=== PATIENT | male | born 1980 | race Caucasian/White ===

== ENCOUNTER 2016-06-29 12:24 | Inpatient (IN) | payer MEDICARE, OTHER ==
[2016-06-29 13:13] LABS: Blood, Urine Large (Negative); Clarity Turbid (Clear); Glucose, Urine (Dipstick) Negative (Negative); Leukocyte Small (Negative); Nitrite Positive (Negative); Protein, Urine (Dipstick) > or equal to 300 mg/dL (Neg-Trace)
[2016-06-29 13:23] LABS: Bilirubin Negative (Negative); Specific Gravity, Urine 1.024 (1.002-1.036)
[2016-06-29 13:24] LABS: ALT (SGPT) 12 U/L (0-55); AST (SGOT) 14 U/L (5-34); Albumin 3.5 g/dL (3.5-5.0); Alkaline Phosphatase 100 U/L (40-150); Anion Gap 14 mmol/L (10-20); BUN (Urea Nitrogen) 11 mg/dL (8.9-20.6); Bilirubin, Total 0.6 mg/dL (0.2-1.2); Calc. Creatinine Clearance 0 mL/min (70-130); Carbon Dioxide 21 mmol/L (22-29); Chloride 106 mmol/L (98-107); Estimated GFR-MDRD Greater than 90; Globulin 4.1 g/dL (2.4-3.5); Glucose 139 mg/dL (70-105); Potassium 3.6 mmol/L (3.5-5.1); Protein, Total 7.6 g/dL (6.0-8.3); Sodium 137 mmol/L (136-145)
[2016-06-29 13:26] LABS: Bacteria/HPF 4+ HPF (None Seen); Crystals/HPF None Seen HPF (Negative); Hyaline Casts/LPF NONE SEEN LPF (0-3 Hyaline); Other Casts/LPF None Seen LPF (0-3 Hyaline); Oval Fat Bodies/HPF None Seen HPF (None Seen); Renal Epithelial None Seen HPF (0-3); Sperm/HPF None Seen HPF (None Seen); Squamous Epithelial 0-3 HPF (0-3); Transitional Epithelial NONE SEEN HPF (0-3); Trichomonas/HPF None Seen HPF (None Seen); Yeast-All Forms None Seen HPF (None Seen)
[2016-06-29 13:30] LABS: Band 7 % (5-11); Eosinophils 3 % (0-10); Hemoglobin 15.7 g/dL (14.0-18.0); Lymphocytes 12 % (21-51); MDiff Complete? YES; Mean Corpuscular HGB CONC 35.4 g/dL (32.0-36.0); Mean Corpuscular Hemoglobin 32.7 pg (27.0-31.0); Mean Corpuscular Volume 92.4 fl (80.0-94.0); Mean Platelet Volume 8.5 fL (7.4-10.4); Monocytes 2 % (0-10); Neutrophil 76 % (42-75); Platelet Count 187 thou/uL (130-400); RBC Distribution Width 14.3 % (11.5-14.5); Red Blood Cell (RBC) Count 4.81 mill/uL (4.70-6.10); White Blood Cell (WBC) Count 10.8 thou/uL (4.8-10.8)
[2016-06-29] MEDS ORDERED: Acetaminophen 325 MG TAB ONE (13:46)
--- NOTE | 2016-06-29 15:28 | RAD ---
PORTABLE CHEST: Date: 06/29/16 An AP portable film at 1240 is compared with an 10/21/13 study. FINDINGS: The patient is turned to the left, which makes seeing the left lung base a little more difficult. No gross infiltrate or effusion was seen. I believe the slight haziness seen near the cardiac apex is more due to the patient being turned than infiltrate here. Prominent scoliosis is present as usual. There is no vascular congestion or firm sign of pneumonia. IMPRESSION: No acute findings. POS: HOME
[2016-06-29] MEDS ORDERED: Guaifenesin DM 100-10/5 ML UDCUP PO PRN (15:37)
[2016-06-29] MEDS ORDERED: Acetaminophen 325 MG TAB PO PRN ×2 (15:37→16:54)
[2016-06-29] MEDS ORDERED: Milk Of Magnesia 30 ML UDCUP PO PRN (15:37)
[2016-06-29] MEDS ORDERED: Zolpidem Tartrate 5 MG TAB PO PRN (15:37)
[2016-06-29] MEDS ORDERED: Ondansetron ODT 4 MG TAB PO PRN ×2 (15:37→16:54)
[2016-06-29] MEDS ORDERED: HYDROcodone/Acetaminophen 5/325 mg Tablet PO PRN ×2 (15:37)
[2016-06-29] MEDS ORDERED: Ondansetron HCl/PF 4 MG/2 ML Vial SLOW IVP PRN (16:54)
[2016-06-29] MEDS ORDERED: Albuterol Sulfate 2.5 mg/3 ml Neb NEB PRN (16:54)
[2016-06-29] MEDS: Dextrose 5 %-0.45 % NaCl 1,000 ML IV SCH ×2 (17:00→23:39)
[2016-06-29 17:12] VITALS: BMI 15.5
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
[2016-06-29] MEDS ORDERED: Diabetic Tussin 200 MG/10 ML UDCUP PO PRN (19:56)
[2016-06-29] MEDS ORDERED: Artificial Tear Sol 15 ML BOT EA EYE PRN (19:56)
[2016-06-29] MEDS ORDERED: diphenhydrAMINE HCl 25 MG CAP PO PRN (19:56)
[2016-06-29] MEDS: Docusate 100 MG CAP PO SCH (20:38)
[2016-06-29] MEDS ORDERED: CALCIUM HMB PO SCH (21:00)
[2016-06-29] MEDS ORDERED: ARGININE PO SCH (21:00)
[2016-06-29] MEDS ORDERED: GLUTAMINE PO SCH (21:00)
[2016-06-29] MEDS: Oxybutynin Chloride 5 MG TAB PO SCH (21:30)
[2016-06-29] MEDS: Baclofen 10 MG TAB PO SCH (21:30)
[2016-06-29] MEDS: Pregabalin 75 MG CAP PO SCH (21:33)
[2016-06-30 05:20] LABS: Anion Gap 10 mmol/L (10-20); BUN (Urea Nitrogen) 6 mg/dL (8.9-20.6); Calc. Creatinine Clearance 122 mL/min (70-130); Calcium 8.2 mg/dL (7.8-10.44); Carbon Dioxide 23 mmol/L (22-29); Chloride 109 mmol/L (98-107); Estimated GFR-MDRD Greater than 90; Glucose 137 mg/dL (70-105); Potassium 3.2 mmol/L (3.5-5.1); Sodium 139 mmol/L (136-145)
[2016-06-30 05:49] LABS: #Lymphocytes 1.1 thou/uL (1.20-3.40); #Monocytes 0.4 thou/uL (0.11-0.59); #Neutrophils 3.9 thou/uL (1.40-6.50); %Basophils 0.5 % (0.0-1.0); %Eosinophils 0.8 % (0.0-10.0); %Lymphocytes 20.4 % (21.0-51.0); %Monocytes 7.4 % (0.0-10.0); Mean Corpuscular HGB CONC 34.1 g/dL (32.0-36.0); Mean Corpuscular Hemoglobin 31.4 pg (27.0-31.0); Mean Corpuscular Volume 92.1 fl (80.0-94.0); Mean Platelet Volume 7.8 fL (7.4-10.4); Platelet Count 164 thou/uL (130-400); RBC Distribution Width 13.7 % (11.5-14.5); Red Blood Cell (RBC) Count 3.83 mill/uL (4.70-6.10); White Blood Cell (WBC) Count 5.4 thou/uL (4.8-10.8)
[2016-06-30] MEDS: Dextrose 5 %-0.45 % NaCl 1,000 ML IV SCH ×2 (06:17→12:15)
[2016-06-30] MEDS ORDERED: Potassium Chloride 20 MEQ TAB PO SCH (09:00)
[2016-06-30] MEDS: Pregabalin 75 MG CAP PO SCH ×2 (09:04→20:53)
[2016-06-30] MEDS: Oxybutynin Chloride 5 MG TAB PO SCH ×2 (09:04→20:54)
[2016-06-30] MEDS: Docusate 100 MG CAP PO SCH ×2 (09:04→20:54)
[2016-06-30] MEDS: Baclofen 10 MG TAB PO SCH ×4 (09:05→20:54)
[2016-07-01 05:18] LABS: Anion Gap 13 mmol/L (10-20); BUN (Urea Nitrogen) 10 mg/dL (8.9-20.6); Calc. Creatinine Clearance 115 mL/min (70-130); Calcium 9.3 mg/dL (7.8-10.44); Carbon Dioxide 23 mmol/L (22-29); Chloride 107 mmol/L (98-107); Estimated GFR-MDRD Greater than 90; Glucose 92 mg/dL (70-105); Potassium 3.9 mmol/L (3.5-5.1); Sodium 139 mmol/L (136-145)
[2016-07-01] MEDS: Pregabalin 75 MG CAP PO SCH ×2 (08:45→21:27)
[2016-07-01] MEDS: Baclofen 10 MG TAB PO SCH ×4 (08:45→21:26)
[2016-07-01] MEDS: Oxybutynin Chloride 5 MG TAB PO SCH ×2 (08:46→21:26)
[2016-07-01] MEDS: Docusate 100 MG CAP PO SCH ×2 (08:46→21:26)
[2016-07-02] MEDS ORDERED: Doxycycline Hyclate 100 MG TAB PO SCH (09:00)
[2016-07-02] MEDS: Docusate 100 MG CAP PO SCH (09:07)
[2016-07-02] MEDS: Baclofen 10 MG TAB PO SCH ×3 (09:08→17:43)
[2016-07-02] MEDS: Oxybutynin Chloride 5 MG TAB PO SCH (09:08)
[2016-07-02] MEDS: Pregabalin 75 MG CAP PO SCH (09:08)
[2016-07-02 19:05] VITALS: BP 124/76; TEMP 98.4
[2016-07-02] MEDS ORDERED: guaiFENesin ER 600 MG TAB PO SCH (21:00)
--- NOTE | 2016-07-03 03:55 | DIS ---
DATE OF ADMISSION: 06/29/2016 DATE OF DISCHARGE: 07/02/2016 ADMISSION DIAGNOSES: Complicated urinary tract infection, bronchitis, sacral decubitus ulcers, incomplete quadriplegia DISCHARGE DIAGNOSES: Complicated urinary tract infection, bronchitis - resolved , sacral decubitus ulcers - chronic, incomplete quadriplegia PROCEDURES: A chest x-ray on 06/29/2016 that showed no acute findings. HOSPITAL COURSE: A 36-year-old male with incomplete quadriplegia with a history of sacral decubitus ulcers, neurogenic bladder with suprapubic catheter and colostomy, presented with upper respiratory infection symptoms. Subsequent evaluation revealed a UTI which was cultured. Sputum culture and a wound culture of the sacral decubitus ulcers were also obtained. The patient was admitted for IV antibiotics in light of the multiple issues at hand. Of note, he did not have leukocytosis and was afebrile upon admission. Also, of note, prior to admission he had completed an antibiotic course approximately 3-4 days prior, which had been prescribed by his wound care doctor, Dr. Barton. The patient was initiated on IV Levaquin and his labs were trended. He remained afebrile throughout his stay with no leukocytosis. His final culture regarding the urine displayed both MRSA and Enterococcus species which were shown to be sensitive to Macrobid. He will be discharged with a 1 week course of treatment on this medication accordingly. He had no further complications during his stay and is amenable to discharge at this time. DISPOSITION: The patient will return home where he lives with his sister and will be further followed by [facility]. He may follow up with Dr. Adams in the clinic next week. DISCHARGE MEDICATIONS: Include his usual medications of guaifenesin 200 mg p.o. q.4 hours p.r.n., Lyrica 75 mg p.o. b.i.d., Artificial Tears 1-2 drops in each eye as directed p.r.n., oxybutynin 5 mg p.o. b.i.d., and baclofen 10 mg p.o. q.i.d. One new medication will be Macrobid 100 mg p.o. b.i.d. x7 days. MTDD
--- NOTE | 2016-07-03 13:42 | PQF ---
JULISSA CARLIN KYLE MD, [id number] CRITICAL ACCESS [facility] [id number] CLINICAL DOCUMENTATION CLARIFICATION FORM: POST DISCHARGE DATE: 07/03/16 DC Diagnoses includes; Complicated Urinary Tract Infection The following CLINICAL INDICATORS - SIGNS / SYMPTOMS are present in the medical record: [ ] "chronic indwelling Suprapubic catheter reports changed out on approximately the of last month. Therefore, due for replacement at present." [ ] UA, 4+bacteria; final culture displayed bothe MRSA and Enterococcus species. RISKS: [ ] Neurogenic bladder with chronic indwelling Suprapubic catheter [ ] Poor healing factors (incomplete quadriplegia, history sacral decubitus ulcers, chronic with osteomyelitis) [ ] Recent use of antibiotics; "3-4 days ago, completed course for sacral decubitus ulcer infections and chronic wounds" TREATMENT: [ ]Antibiotics_IV Levaquin 750mg [ ]Suprapubic Catheter change Please anahi a response below if a more specific term indicating a diagnosis and/ or acuity level for this condition can be identified. Please exercise your independent, professional judgment in responding to the clarification form. Clinical indicators are provided at the top of this form for your review. For continuity of documentation, please document condition throughout progress notes and discharge summary. Thank you. [ ] Present on Admission (POA): [ ] Yes [ ] No [ ] Unable to determine [ ] UTI underlying etiology [ ] (Condition) not related to presence of device. [ ] Does not apply to this patient [ ] Unable to determine [ ] Other diagnosis: _ Physician/Provider Signature Date Time (This form is maintained as a part of the permanent medical record) 2014 [employer], [employer]. All Rights Reserved CAMMY [email or web address] MTDD
== END 2016-07-02 19:50 | disposition home health service (06) | DRG 698 ==
LOC: BURERS 12:24 → BURMED 14:10
PROVIDERS: ADMIT Family Medicine; ATTEND Family Medicine
DX: T83.510A Infection and inflammatory reaction due to cystostomy catheter, initial encounter (principal); G82.54 Quadriplegia, C5-C7 incomplete; L89.153 Pressure ulcer of sacral region, stage 3; N39.0 Urinary tract infection, site not specified; B95.2 Enterococcus as the cause of diseases classified elsewhere; B95.62 Methicillin resistant Staphylococcus aureus infection as the cause of diseases classified elsewhere; J40 Bronchitis, not specified as acute or chronic; V86.59XS Driver of other special all-terrain or other off-road motor vehicle injured in nontraffic accident, sequela; S12.490S Other displaced fracture of fifth cervical vertebra, sequela; Z93.3 Colostomy status; N31.9 Neuromuscular dysfunction of bladder, unspecified; Z86.718 Personal history of other venous thrombosis and embolism; Z88.1 Allergy status to other antibiotic agents; E87.6 Hypokalemia
CPT/HCPCS: 36415; 71010; 80048; 80053; 81003; 81015; 83605; 85025; 87040; 87070; 87077; 87086; 87186; 87205; 94640; 96365; 96366; A4216; G8990-GP-CH; G8991-GP-CH; J1956; J7620

== ENCOUNTER 2016-10-21 09:16 | Outpatient (CLI) | payer MEDICARE, OTHER ==
--- NOTE | 2016-10-21 22:46 | RAD ---
PELVIS 10/21/16 Comparison is made with a 12/26/15 study done at [facility]. As previously, there has been a prior resection of the left femoral head at the neck with abundant h ypertrophic changes in the trochanteric regions that remain. Any exchange operator time here is minimal. T here is some irregularity of the acetabulum on the left, but it is no different than before. Each is chial tuberosity is missing, apparently from the prior infections. Since the prior study, one no longer sees the right femoral head.\ZU\ \N\I presume it has been resec esteban. There is now superior displacement of the remaining femur that is pseudoarticulating with the s ite of the right iliac bone just below the anterior inferior iliac spine. The SI joints cannot be pr operly evaluated due to overlying gas and fecal material. IMPRESSION: 1. Chronic changes involving the ischial bones and prior resection of the left femoral head. Th los areas have changed minimally over time. 2. Right femoral head and neck are no longer present, compared to previous study. There is resu lting superior subluxation of the right femur. See above. POS: HOME
== END 2016-10-21 09:17 | disposition home or self-care (01) ==
LOC: BURRAD 09:16
PROVIDERS: ATTEND Family Medicine
DX: L89.314 Pressure ulcer of right buttock, stage 4 (principal); S73.001A Unspecified subluxation of right hip, initial encounter
CPT/HCPCS: 72170

== ENCOUNTER 2016-12-08 17:02 | Emergency (ER) | payer MEDICARE, MEDICAID ==
[2016-12-08 18:26] LABS: #Basophils 0.1 thou/uL (0.0-0.2); #Eosinphils 0.3 thou/uL (0.0-0.7); #Lymphocytes 2.9 thou/uL (1.20-3.40); #Monocytes 0.8 thou/uL (0.11-0.59); #Neutrophils 5.6 thou/uL (1.40-6.50); %Basophils 0.8 % (0.0-1.0); %Eosinophils 2.8 % (0.0-10.0); %Lymphocytes 30.1 % (21.0-51.0); %Monocytes 8.5 % (0.0-10.0); %Neutrophils 57.8 % (42.0-75.0); Hemoglobin 15.3 g/dL (14.0-18.0); Mean Corpuscular HGB CONC 33.7 g/dL (32.0-36.0); Mean Corpuscular Volume 89.1 fl (80.0-94.0); Mean Platelet Volume 7.8 fL (7.4-10.4); Platelet Count 253 thou/uL (130-400); RBC Distribution Width 12.3 % (11.5-14.5); Red Blood Cell (RBC) Count 5.11 mill/uL (4.70-6.10); White Blood Cell (WBC) Count 9.6 thou/uL (4.8-10.8)
[2016-12-08] MEDS ORDERED: diphenhydrAMINE HCl 50 MG/ML 1 ML VIAL ONE (18:27)
[2016-12-08 18:35] LABS: ALT (SGPT) 14 U/L (8-55); AST (SGOT) 16 U/L (5-34); Albumin 3.8 g/dL (3.5-5.0); Alkaline Phosphatase 148 U/L (40-150); Anion Gap 12 mmol/L (10-20); BUN (Urea Nitrogen) 13 mg/dL (8.9-20.6); Bilirubin, Total 0.4 mg/dL (0.2-1.2); Calc. Creatinine Clearance 0 mL/min (70-130); Calcium 9.5 mg/dL (7.8-10.44); Carbon Dioxide 25 mmol/L (22-29); Chloride 107 mmol/L (98-107); Estimated GFR-MDRD Greater than 90; Globulin 4.3 g/dL (2.4-3.5); Glucose 86 mg/dL (70-105); Potassium 3.9 mmol/L (3.5-5.1); Protein, Total 8.1 g/dL (6.0-8.3); Sodium 140 mmol/L (136-145)
[2016-12-08 18:41] LABS: Bilirubin Negative (Negative); Blood, Urine Moderate (Negative); Clarity Turbid (Clear); Glucose, Urine (Dipstick) Negative (Negative); Leukocyte Large (Negative); Nitrite Positive (Negative); Protein, Urine (Dipstick) > or equal to 300 mg/dL (Neg-Trace); Specific Gravity, Urine 1.015 (1.005-1.030)
[2016-12-08 18:42] LABS: pH, Urine Greater/Equal 9.0 (5.0-9.0)
[2016-12-08 18:45] LABS: RBC/HPF GREATER THAN 50-TNTC HPF (0-3); Squamous Epithelial 0-3 HPF (0-3)
[2016-12-08 18:46] LABS: Bacteria/HPF 4+ HPF (None Seen); Crystals/HPF 3+ TRIPLE PHOS HPF (Negative)
== END 2016-12-08 19:12 | disposition home or self-care (01) ==
LOC: BURERS 17:02
DX: M86.9 Osteomyelitis, unspecified (principal); N39.0 Urinary tract infection, site not specified; I10 Essential (primary) hypertension; Z79.891 Long term (current) use of opiate analgesic; Z79.899 Other long term (current) drug therapy
CPT/HCPCS: 80053; 81003; 81015; 85025; 85652; 87040; 87070; 87077; 87086; 87186; 87205; 96365; 96375; J1200; J3370

== ENCOUNTER 2016-12-10 14:40 | Inpatient (IN) | payer MEDICARE, MEDICAID ==
[2016-12-11 17:06] LABS: #Basophils 0.1 thou/uL (0.0-0.2); #Eosinphils 0.2 thou/uL (0.0-0.7); #Lymphocytes 1.7 thou/uL (1.20-3.40); #Monocytes 0.5 thou/uL (0.11-0.59); #Neutrophils 2.6 thou/uL (1.40-6.50); %Basophils 1.1 % (0.0-1.0); %Eosinophils 3.4 % (0.0-10.0); %Lymphocytes 34.2 % (21.0-51.0); %Monocytes 9.1 % (0.0-10.0); %Neutrophils 52.3 % (42.0-75.0); Hemoglobin 13.7 g/dL (14.0-18.0); Mean Corpuscular HGB CONC 33.8 g/dL (32.0-36.0); Mean Corpuscular Hemoglobin 29.8 pg (27.0-31.0); Mean Corpuscular Volume 88.4 fl (80.0-94.0); Mean Platelet Volume 7.8 fL (7.4-10.4); Platelet Count 160 thou/uL (130-400); RBC Distribution Width 11.9 % (11.5-14.5)
[2016-12-11 17:24] LABS: ALT (SGPT) 17 U/L (8-55); AST (SGOT) 25 U/L (5-34); Albumin 3.4 g/dL (3.5-5.0); Alkaline Phosphatase 136 U/L (40-150); Anion Gap 10 mmol/L (10-20); BUN (Urea Nitrogen) 11 mg/dL (8.9-20.6); Bilirubin, Total 0.3 mg/dL (0.2-1.2); Calc. Creatinine Clearance 103 mL/min (70-130); Calcium 8.9 mg/dL (7.8-10.44); Carbon Dioxide 28 mmol/L (22-29); Chloride 104 mmol/L (98-107); Estimated GFR-MDRD Greater than 90; Globulin 3.8 g/dL (2.4-3.5); Glucose 75 mg/dL (70-105); Potassium 4.1 mmol/L (3.5-5.1); Protein, Total 7.2 g/dL (6.0-8.3); Sodium 138 mmol/L (136-145)
[2016-12-11] MEDS: Baclofen 10 MG TAB PO SCH ×2 (17:53→20:57)
[2016-12-11] MEDS: Enoxaparin Sodium 30 MG/0.3 ML SYRINGE SC SCH (20:52)
[2016-12-11] MEDS: Pregabalin 75 MG CAP PO SCH (20:57)
[2016-12-11] MEDS ORDERED: GLUTAMINE PO SCH (21:00)
[2016-12-11] MEDS: Oxybutynin 5 MG TAB PO SCH (21:00)
[2016-12-11] MEDS ORDERED: ARGININE PO SCH (21:00)
[2016-12-11] MEDS ORDERED: CALCIUM HMB PO SCH (21:00)
[2016-12-11] MEDS ORDERED: [UNRECOGNIZED DRUG - OTHER] IV SCH (21:00)
[2016-12-11] MEDS ORDERED: VANCOMYCIN HCL IN DEXTROSE 5% IV SCH (21:00)
[2016-12-11] MEDS ORDERED: Meropenem 1 GM VIAL IVPB SCH (22:00)
[2016-12-11 22:09] LABS: CRP (Inflammatory) 0.69 mg/dL (= or < 0.5)
[2016-12-11] MEDS: Meropenem 1 GM in Sodium Chloride 0.9% 100 ML IVPB SCH (22:59)
[2016-12-12] MEDS: Vancomycin HCl 750 MG in Sodium Chloride 0.9% 250 ML 250 ML IVPB SCH ×2 (00:12→12:44)
[2016-12-12] MEDS: Vancomycin HCl 500 MG in Sodium Chloride 0.9% 100 ML IVPB SCH ×2 (02:23→14:48)
[2016-12-12] MEDS: HYDROcodone/Acetaminophen 7.5/325 mg Tablet PO PRN ×2 (05:28→23:11)
[2016-12-12] MEDS: Meropenem 1 GM in Sodium Chloride 0.9% 100 ML IVPB SCH ×3 (05:33→23:10)
[2016-12-12] MEDS: Pregabalin 75 MG CAP PO SCH ×2 (10:15→20:26)
[2016-12-12] MEDS: Oxybutynin 5 MG TAB PO SCH ×2 (10:15→20:26)
[2016-12-12] MEDS: Baclofen 10 MG TAB PO SCH ×4 (10:16→20:28)
[2016-12-12] MEDS ORDERED: Vancomycin HCl 750 MG VIAL ONE (13:59)
[2016-12-12] MEDS ORDERED: diphenhydrAMINE 25 MG CAP PO PRN (15:38)
[2016-12-12] MEDS ORDERED: Acetaminophen 500 MG TAB ONE (16:05)
[2016-12-12] MEDS ORDERED: Acetaminophen 500 MG TAB PO SCH (16:15)
[2016-12-12] MEDS: Enoxaparin Sodium 30 MG/0.3 ML SYRINGE SC SCH (20:25)
[2016-12-12] MEDS: Acetaminophen 500 MG TAB PO SCH (23:42)
[2016-12-12] MEDS: diphenhydrAMINE 25 MG CAP PO SCH (23:43)
[2016-12-13] MEDS: Vancomycin HCl 750 MG in Sodium Chloride 0.9% 250 ML 250 ML IVPB SCH ×2 (00:06→13:15)
[2016-12-13] MEDS: Vancomycin HCl 500 MG in Sodium Chloride 0.9% 100 ML IVPB SCH ×2 (02:26→15:24)
[2016-12-13] MEDS: Meropenem 1 GM in Sodium Chloride 0.9% 100 ML IVPB SCH ×3 (06:09→23:14)
[2016-12-13] MEDS: Pregabalin 75 MG CAP PO SCH ×2 (09:12→20:36)
[2016-12-13] MEDS: Oxybutynin 5 MG TAB PO SCH ×2 (09:12→20:36)
[2016-12-13] MEDS: Baclofen 10 MG TAB PO SCH ×4 (09:13→20:36)
[2016-12-13 12:21] LABS: Vancomycin, Trough 20.9 ug/mL
[2016-12-13] MEDS: Acetaminophen 500 MG TAB PO SCH ×2 (12:42→23:42)
[2016-12-13] MEDS: diphenhydrAMINE 25 MG CAP PO SCH ×2 (12:42→23:42)
[2016-12-13] MEDS: HYDROcodone/Acetaminophen 7.5/325 mg Tablet PO PRN ×2 (12:42→23:15)
[2016-12-13] MEDS: Ondansetron ODT 4 MG TAB PO PRN (18:44)
[2016-12-13] MEDS: Enoxaparin Sodium 30 MG/0.3 ML SYRINGE SC SCH (20:36)
[2016-12-14] MEDS: Vancomycin HCl 750 MG in Sodium Chloride 0.9% 250 ML 250 ML IVPB SCH ×2 (00:22→12:38)
[2016-12-14] MEDS: Vancomycin HCl 500 MG in Sodium Chloride 0.9% 100 ML IVPB SCH ×2 (02:36→14:44)
[2016-12-14] MEDS: Meropenem 1 GM in Sodium Chloride 0.9% 100 ML IVPB SCH ×3 (06:09→23:28)
[2016-12-14] MEDS: Pregabalin 75 MG CAP PO SCH ×2 (07:50→21:23)
[2016-12-14] MEDS: Baclofen 10 MG TAB PO SCH ×4 (07:51→21:25)
[2016-12-14] MEDS: HYDROcodone/Acetaminophen 7.5/325 mg Tablet PO PRN ×3 (07:52→23:32)
[2016-12-14] MEDS: Oxybutynin 5 MG TAB PO SCH ×2 (07:52→21:25)
[2016-12-14] MEDS: diphenhydrAMINE 25 MG CAP PO SCH ×2 (11:31→23:33)
[2016-12-14] MEDS: Acetaminophen 500 MG TAB PO SCH ×2 (11:31→23:33)
[2016-12-14 12:22] LABS: Vancomycin, Trough 20.3 ug/mL
[2016-12-14] MEDS: Ondansetron ODT 4 MG TAB PO PRN (15:59)
[2016-12-14] MEDS: Enoxaparin Sodium 30 MG/0.3 ML SYRINGE SC SCH (21:24)
[2016-12-15] MEDS: Vancomycin HCl 750 MG in Sodium Chloride 0.9% 250 ML 250 ML IVPB SCH ×2 (00:04→12:27)
[2016-12-15] MEDS: Vancomycin HCl 500 MG in Sodium Chloride 0.9% 100 ML IVPB SCH ×2 (02:00→14:28)
[2016-12-15 05:23] LABS: Hemoglobin 14.1 g/dL (14.0-18.0); Platelet Count 141 thou/uL (130-400)
[2016-12-15 05:42] LABS: Calc. Creatinine Clearance 107 mL/min (70-130); Estimated GFR-MDRD Greater than 90
[2016-12-15] MEDS: Meropenem 1 GM in Sodium Chloride 0.9% 100 ML IVPB SCH ×3 (06:19→22:57)
[2016-12-15] MEDS: HYDROcodone/Acetaminophen 7.5/325 mg Tablet PO PRN (08:13)
[2016-12-15] MEDS: Oxybutynin 5 MG TAB PO SCH ×2 (08:13→20:56)
[2016-12-15] MEDS: Pregabalin 75 MG CAP PO SCH ×2 (08:13→20:55)
[2016-12-15] MEDS: Baclofen 10 MG TAB PO SCH ×4 (08:14→20:57)
[2016-12-15] MEDS: diphenhydrAMINE 25 MG CAP PO SCH (11:50)
[2016-12-15] MEDS: Acetaminophen 500 MG TAB PO SCH (11:51)
[2016-12-15] MEDS: Ondansetron ODT 4 MG TAB PO PRN ×2 (14:27→20:54)
[2016-12-15] MEDS: Enoxaparin Sodium 30 MG/0.3 ML SYRINGE SC SCH (20:56)
[2016-12-16] MEDS: Acetaminophen 500 MG TAB PO SCH ×3 (00:02→23:44)
[2016-12-16] MEDS: diphenhydrAMINE 25 MG CAP PO SCH ×3 (00:03→23:44)
[2016-12-16] MEDS: Vancomycin HCl 750 MG in Sodium Chloride 0.9% 250 ML 250 ML IVPB SCH ×2 (00:44→12:20)
[2016-12-16] MEDS: Vancomycin HCl 500 MG in Sodium Chloride 0.9% 100 ML IVPB SCH ×2 (02:24→14:32)
[2016-12-16] MEDS: Meropenem 1 GM in Sodium Chloride 0.9% 100 ML IVPB SCH ×3 (06:11→23:42)
[2016-12-16] MEDS: Pregabalin 75 MG CAP PO SCH ×2 (08:32→20:53)
[2016-12-16] MEDS: Oxybutynin 5 MG TAB PO SCH ×2 (08:32→20:53)
[2016-12-16] MEDS: Baclofen 10 MG TAB PO SCH ×4 (08:32→20:53)
[2016-12-16] MEDS: HYDROcodone/Acetaminophen 7.5/325 mg Tablet PO PRN ×2 (08:33→22:30)
[2016-12-16] MEDS: Floranex Packet PO SCH (08:33)
[2016-12-16] MEDS: Ondansetron ODT 4 MG TAB PO PRN (15:17)
[2016-12-16] MEDS: Enoxaparin Sodium 30 MG/0.3 ML SYRINGE SC SCH (20:54)
[2016-12-17] MEDS: Vancomycin HCl 750 MG in Sodium Chloride 0.9% 250 ML 250 ML IVPB SCH ×2 (00:34→13:15)
[2016-12-17] MEDS: Vancomycin HCl 500 MG in Sodium Chloride 0.9% 100 ML IVPB SCH ×2 (00:40→13:15)
[2016-12-17 05:22] LABS: Hemoglobin 13.2 g/dL (14.0-18.0); Platelet Count 141 thou/uL (130-400)
[2016-12-17 05:31] LABS: Calc. Creatinine Clearance 109 mL/min (70-130); Estimated GFR-MDRD Greater than 90
[2016-12-17] MEDS: Meropenem 1 GM in Sodium Chloride 0.9% 100 ML IVPB SCH ×3 (06:36→22:00)
[2016-12-17] MEDS: Floranex Packet PO SCH (08:45)
[2016-12-17] MEDS: Pregabalin 75 MG CAP PO SCH ×2 (08:45→22:02)
[2016-12-17] MEDS: Oxybutynin 5 MG TAB PO SCH ×2 (08:46→22:00)
[2016-12-17] MEDS: Baclofen 10 MG TAB PO SCH ×4 (08:46→22:00)
[2016-12-17 12:20] LABS: Vancomycin, Trough 19.5 ug/mL
[2016-12-17] MEDS: Acetaminophen 500 MG TAB PO SCH ×2 (12:35→23:55)
[2016-12-17] MEDS: diphenhydrAMINE 25 MG CAP PO SCH ×2 (12:35→23:56)
[2016-12-17] MEDS: Ondansetron ODT 4 MG TAB PO PRN (19:00)
[2016-12-17] MEDS: Enoxaparin Sodium 30 MG/0.3 ML SYRINGE SC SCH (22:01)
[2016-12-17] MEDS: HYDROcodone/Acetaminophen 7.5/325 mg Tablet PO PRN (23:54)
[2016-12-18] MEDS: Vancomycin HCl 750 MG in Sodium Chloride 0.9% 250 ML 250 ML IVPB SCH ×2 (00:47→12:46)
[2016-12-18] MEDS: Vancomycin HCl 500 MG in Sodium Chloride 0.9% 100 ML IVPB SCH ×2 (02:53→14:32)
[2016-12-18] MEDS: Meropenem 1 GM in Sodium Chloride 0.9% 100 ML IVPB SCH ×3 (06:04→22:04)
[2016-12-18] MEDS: Pregabalin 75 MG CAP PO SCH ×2 (08:41→21:30)
[2016-12-18] MEDS: Oxybutynin 5 MG TAB PO SCH ×2 (08:42→21:30)
[2016-12-18] MEDS: Floranex Packet PO SCH (08:43)
[2016-12-18] MEDS: Baclofen 10 MG TAB PO SCH ×4 (08:53→21:30)
[2016-12-18] MEDS: Acetaminophen 500 MG TAB PO SCH ×2 (12:15→22:46)
[2016-12-18] MEDS: diphenhydrAMINE 25 MG CAP PO SCH ×2 (12:15→22:46)
[2016-12-18] MEDS ORDERED: Vancomycin HCl 500 MG VIAL ONE (12:36)
[2016-12-18] MEDS ORDERED: VANCOMYCIN IVPB PRN (19:46)
[2016-12-18] MEDS: Enoxaparin Sodium 30 MG/0.3 ML SYRINGE SC SCH (21:29)
[2016-12-18] MEDS: HYDROcodone/Acetaminophen 7.5/325 mg Tablet PO PRN (21:31)
[2016-12-19] MEDS: Vancomycin HCl 500 MG in Sodium Chloride 0.9% 100 ML IVPB SCH ×2 (00:13→13:20)
[2016-12-19] MEDS: Vancomycin HCl 750 MG in Sodium Chloride 0.9% 250 ML 250 ML IVPB SCH (01:02)
[2016-12-19] MEDS: Meropenem 1 GM in Sodium Chloride 0.9% 100 ML IVPB SCH ×3 (05:47→23:52)
[2016-12-19 06:33] LABS: Hemoglobin 13.6 g/dL (14.0-18.0); Platelet Count 144 thou/uL (130-400)
[2016-12-19 06:58] LABS: Calc. Creatinine Clearance 109 mL/min (70-130); Estimated GFR-MDRD Greater than 90
[2016-12-19] MEDS: Floranex Packet PO SCH (08:39)
[2016-12-19] MEDS: Pregabalin 75 MG CAP PO SCH ×2 (08:39→21:01)
[2016-12-19] MEDS: Oxybutynin 5 MG TAB PO SCH ×2 (08:39→21:04)
[2016-12-19] MEDS: Baclofen 10 MG TAB PO SCH ×4 (08:39→21:04)
[2016-12-19 12:19] LABS: Vancomycin, Trough 23.7 ug/mL
[2016-12-19] MEDS: Acetaminophen 500 MG TAB PO SCH ×2 (12:43→23:54)
[2016-12-19] MEDS: diphenhydrAMINE 25 MG CAP PO SCH ×2 (12:44→23:54)
[2016-12-19] MEDS: Vancomycin HCl 1 GM in Sodium Chloride 0.9% 250 ML 250 ML IVPB SCH (13:52)
[2016-12-19] MEDS: HYDROcodone/Acetaminophen 7.5/325 mg Tablet PO PRN (15:19)
[2016-12-19] MEDS ORDERED: Milk Of Magnesia 30 ML UDCUP PO PRN (17:13)
[2016-12-19] MEDS: Enoxaparin Sodium 30 MG/0.3 ML SYRINGE SC SCH (21:05)
[2016-12-20] MEDS: Vancomycin HCl 1 GM in Sodium Chloride 0.9% 250 ML 250 ML IVPB SCH ×2 (00:48→13:34)
[2016-12-20] MEDS: Meropenem 1 GM in Sodium Chloride 0.9% 100 ML IVPB SCH ×3 (06:03→22:44)
[2016-12-20] MEDS: Floranex Packet PO SCH (08:50)
[2016-12-20] MEDS: Pregabalin 75 MG CAP PO SCH ×2 (08:50→20:50)
[2016-12-20] MEDS: Baclofen 10 MG TAB PO SCH ×4 (08:50→20:49)
[2016-12-20] MEDS: Oxybutynin 5 MG TAB PO SCH ×2 (08:51→20:49)
[2016-12-20] MEDS: Acetaminophen 500 MG TAB PO SCH (12:01)
[2016-12-20] MEDS: diphenhydrAMINE 25 MG CAP PO SCH (12:02)
[2016-12-20] MEDS: Enoxaparin Sodium 30 MG/0.3 ML SYRINGE SC SCH (20:49)
[2016-12-21] MEDS ORDERED: Acetaminophen 500 MG TAB ONE (00:21)
[2016-12-21] MEDS: Acetaminophen 500 MG TAB PO SCH ×2 (00:25→12:36)
[2016-12-21] MEDS: diphenhydrAMINE 25 MG CAP PO SCH ×2 (00:25→12:36)
[2016-12-21] MEDS: Vancomycin HCl 1 GM in Sodium Chloride 0.9% 250 ML 250 ML IVPB SCH ×2 (00:55→12:52)
[2016-12-21 05:59] LABS: Hemoglobin 13.5 g/dL (14.0-18.0); Platelet Count 148 thou/uL (130-400)
[2016-12-21] MEDS: Meropenem 1 GM in Sodium Chloride 0.9% 100 ML IVPB SCH ×3 (06:01→23:15)
[2016-12-21 06:07] LABS: Calc. Creatinine Clearance 113 mL/min (70-130); Estimated GFR-MDRD Greater than 90
[2016-12-21] MEDS: HYDROcodone/Acetaminophen 7.5/325 mg Tablet PO PRN ×2 (08:41→21:38)
[2016-12-21] MEDS: Pregabalin 75 MG CAP PO SCH ×2 (08:43→21:32)
[2016-12-21] MEDS: Baclofen 10 MG TAB PO SCH ×5 (08:43→21:32)
[2016-12-21] MEDS: Oxybutynin 5 MG TAB PO SCH ×2 (08:45→21:32)
[2016-12-21] MEDS: Floranex Packet PO SCH (08:46)
[2016-12-21 12:22] LABS: Vancomycin, Trough 20.3 ug/mL
[2016-12-21] MEDS: Ondansetron ODT 4 MG TAB PO PRN (16:52)
[2016-12-21] MEDS: Enoxaparin Sodium 30 MG/0.3 ML SYRINGE SC SCH (21:33)
[2016-12-22] MEDS: diphenhydrAMINE 25 MG CAP PO SCH ×3 (00:22→23:07)
[2016-12-22] MEDS: Acetaminophen 500 MG TAB PO SCH ×3 (00:22→23:07)
[2016-12-22] MEDS: Vancomycin HCl 1 GM in Sodium Chloride 0.9% 250 ML 250 ML IVPB SCH ×2 (01:02→12:41)
[2016-12-22] MEDS: Meropenem 1 GM in Sodium Chloride 0.9% 100 ML IVPB SCH ×3 (06:07→23:01)
[2016-12-22] MEDS: Oxybutynin 5 MG TAB PO SCH ×2 (08:48→20:57)
[2016-12-22] MEDS: Floranex Packet PO SCH (08:49)
[2016-12-22] MEDS: Pregabalin 75 MG CAP PO SCH ×2 (08:49→20:57)
[2016-12-22] MEDS: Baclofen 10 MG TAB PO SCH ×4 (08:49→20:57)
[2016-12-22 11:00] VITALS: BMI 13.8
[2016-12-22] MEDS: HYDROcodone/Acetaminophen 7.5/325 mg Tablet PO PRN ×2 (14:58→21:00)
[2016-12-22] MEDS: Enoxaparin Sodium 30 MG/0.3 ML SYRINGE SC SCH (21:00)
[2016-12-23] MEDS: Vancomycin HCl 1 GM in Sodium Chloride 0.9% 250 ML 250 ML IVPB SCH ×2 (00:03→12:50)
[2016-12-23] MEDS: Meropenem 1 GM in Sodium Chloride 0.9% 100 ML IVPB SCH ×3 (06:04→22:38)
[2016-12-23 06:17] LABS: Platelet Count 148 thou/uL (130-400)
[2016-12-23 06:29] LABS: Calc. Creatinine Clearance 97 mL/min (70-130); Estimated GFR-MDRD Greater than 90
[2016-12-23] MEDS: Baclofen 10 MG TAB PO SCH ×4 (08:13→20:32)
[2016-12-23] MEDS: Floranex Packet PO SCH (08:13)
[2016-12-23] MEDS: Oxybutynin 5 MG TAB PO SCH ×2 (08:13→20:34)
[2016-12-23] MEDS: Pregabalin 75 MG CAP PO SCH ×2 (08:13→20:35)
[2016-12-23] MEDS: HYDROcodone/Acetaminophen 7.5/325 mg Tablet PO PRN ×2 (08:14→20:33)
[2016-12-23] MEDS: diphenhydrAMINE 25 MG CAP PO SCH (12:16)
[2016-12-23] MEDS: Acetaminophen 500 MG TAB PO SCH (12:17)
[2016-12-23 12:18] LABS: Vancomycin, Trough 17.3 ug/mL
[2016-12-23] MEDS: Ondansetron ODT 4 MG TAB PO PRN (13:38)
[2016-12-23] MEDS: Famotidine 20 MG TAB PO SCH (18:08)
[2016-12-23] MEDS: Enoxaparin Sodium 30 MG/0.3 ML SYRINGE SC SCH (20:31)
[2016-12-24] MEDS: diphenhydrAMINE 25 MG CAP PO SCH ×3 (00:29→23:42)
[2016-12-24] MEDS: Acetaminophen 500 MG TAB PO SCH ×3 (00:29→23:41)
[2016-12-24] MEDS: Vancomycin HCl 1 GM in Sodium Chloride 0.9% 250 ML 250 ML IVPB SCH ×2 (01:12→12:59)
[2016-12-24] MEDS: Meropenem 1 GM in Sodium Chloride 0.9% 100 ML IVPB SCH ×3 (06:16→23:37)
[2016-12-24] MEDS: Oxybutynin 5 MG TAB PO SCH ×2 (09:02→20:53)
[2016-12-24] MEDS: Baclofen 10 MG TAB PO SCH ×4 (09:02→20:53)
[2016-12-24] MEDS: Famotidine 20 MG TAB PO SCH ×2 (09:02→20:53)
[2016-12-24] MEDS: Pregabalin 75 MG CAP PO SCH ×2 (09:02→20:53)
[2016-12-24] MEDS: HYDROcodone/Acetaminophen 7.5/325 mg Tablet PO PRN ×2 (09:03→23:41)
[2016-12-24] MEDS: Floranex Packet PO SCH (09:03)
[2016-12-24] MEDS ORDERED: Dicyclomine 10 MG CAP PO PRN (11:11)
[2016-12-24] MEDS: Enoxaparin Sodium 30 MG/0.3 ML SYRINGE SC SCH (20:55)
[2016-12-25] MEDS: Vancomycin HCl 1 GM in Sodium Chloride 0.9% 250 ML 250 ML IVPB SCH ×2 (00:15→13:20)
[2016-12-25 06:00] LABS: Hemoglobin 13.2 g/dL (14.0-18.0); Platelet Count 136 thou/uL (130-400)
[2016-12-25 06:01] LABS: Calc. Creatinine Clearance 100 mL/min (70-130); Estimated GFR-MDRD Greater than 90
[2016-12-25] MEDS: Meropenem 1 GM in Sodium Chloride 0.9% 100 ML IVPB SCH ×3 (06:16→22:54)
[2016-12-25] MEDS: Pregabalin 75 MG CAP PO SCH ×2 (08:56→20:44)
[2016-12-25] MEDS: Ondansetron ODT 4 MG TAB PO PRN (08:56)
[2016-12-25] MEDS: Baclofen 10 MG TAB PO SCH ×4 (08:59→20:43)
[2016-12-25] MEDS: Floranex Packet PO SCH (08:59)
[2016-12-25] MEDS: Famotidine 20 MG TAB PO SCH ×2 (08:59→20:44)
[2016-12-25] MEDS: Oxybutynin 5 MG TAB PO SCH ×2 (08:59→20:44)
[2016-12-25] MEDS: Acetaminophen 500 MG TAB PO SCH ×2 (12:42→23:52)
[2016-12-25] MEDS: diphenhydrAMINE 25 MG CAP PO SCH ×2 (12:43→23:52)
[2016-12-25] MEDS: Enoxaparin Sodium 30 MG/0.3 ML SYRINGE SC SCH (20:44)
[2016-12-26] MEDS: Vancomycin HCl 1 GM in Sodium Chloride 0.9% 250 ML 250 ML IVPB SCH ×2 (00:58→12:41)
[2016-12-26] MEDS: Meropenem 1 GM in Sodium Chloride 0.9% 100 ML IVPB SCH ×2 (06:21→14:57)
[2016-12-26] MEDS: Pregabalin 75 MG CAP PO SCH ×2 (10:02→20:43)
[2016-12-26] MEDS: Famotidine 20 MG TAB PO SCH ×2 (10:02→20:42)
[2016-12-26] MEDS: Oxybutynin 5 MG TAB PO SCH ×2 (10:02→20:42)
[2016-12-26] MEDS: Baclofen 10 MG TAB PO SCH ×4 (10:03→20:42)
[2016-12-26] MEDS: Floranex Packet PO SCH (10:03)
[2016-12-26] MEDS: HYDROcodone/Acetaminophen 7.5/325 mg Tablet PO PRN ×2 (10:04→16:50)
[2016-12-26] MEDS: Acetaminophen 500 MG TAB PO SCH (11:58)
[2016-12-26] MEDS: diphenhydrAMINE 25 MG CAP PO SCH (12:00)
[2016-12-26 12:24] LABS: Vancomycin, Trough 17.7 ug/mL
[2016-12-26] MEDS: Enoxaparin Sodium 30 MG/0.3 ML SYRINGE SC SCH (20:39)
[2016-12-27] MEDS: Meropenem 1 GM in Sodium Chloride 0.9% 100 ML IVPB SCH ×4 (00:02→22:53)
[2016-12-27] MEDS: HYDROcodone/Acetaminophen 7.5/325 mg Tablet PO PRN ×2 (00:03→20:06)
[2016-12-27] MEDS: Acetaminophen 500 MG TAB PO SCH ×2 (00:03→12:48)
[2016-12-27] MEDS: diphenhydrAMINE 25 MG CAP PO SCH ×2 (00:03→12:49)
[2016-12-27] MEDS: Vancomycin HCl 1 GM in Sodium Chloride 0.9% 250 ML 250 ML IVPB SCH ×2 (01:02→13:18)
[2016-12-27 06:23] LABS: Hemoglobin 14.3 g/dL (14.0-18.0); Platelet Count 171 thou/uL (130-400)
[2016-12-27 06:35] LABS: Calc. Creatinine Clearance 100 mL/min (70-130); Estimated GFR-MDRD Greater than 90
[2016-12-27] MEDS: Famotidine 20 MG TAB PO SCH ×2 (08:56→21:25)
[2016-12-27] MEDS: Pregabalin 75 MG CAP PO SCH ×2 (08:56→21:25)
[2016-12-27] MEDS: Oxybutynin 5 MG TAB PO SCH ×2 (08:57→21:25)
[2016-12-27] MEDS: Baclofen 10 MG TAB PO SCH ×4 (08:57→21:25)
[2016-12-27] MEDS: Floranex Packet PO SCH (08:57)
[2016-12-27] MEDS: Enoxaparin Sodium 30 MG/0.3 ML SYRINGE SC SCH (21:26)
[2016-12-28] MEDS: diphenhydrAMINE 25 MG CAP PO SCH ×2 (00:12→12:30)
[2016-12-28] MEDS: Acetaminophen 500 MG TAB PO SCH ×2 (00:12→12:30)
[2016-12-28] MEDS: Vancomycin HCl 1 GM in Sodium Chloride 0.9% 250 ML 250 ML IVPB SCH ×2 (00:54→13:00)
[2016-12-28] MEDS: Meropenem 1 GM in Sodium Chloride 0.9% 100 ML IVPB SCH ×3 (06:03→22:50)
[2016-12-28] MEDS: Pregabalin 75 MG CAP PO SCH ×2 (08:42→21:02)
[2016-12-28] MEDS: Oxybutynin 5 MG TAB PO SCH ×2 (08:42→21:04)
[2016-12-28] MEDS: Famotidine 20 MG TAB PO SCH ×2 (08:42→21:02)
[2016-12-28] MEDS: Floranex Packet PO SCH (08:42)
[2016-12-28] MEDS: Baclofen 10 MG TAB PO SCH ×4 (08:42→21:03)
[2016-12-28] MEDS: HYDROcodone/Acetaminophen 7.5/325 mg Tablet PO PRN ×2 (08:44→21:03)
[2016-12-28] MEDS: Enoxaparin Sodium 30 MG/0.3 ML SYRINGE SC SCH (21:04)
[2016-12-29] MEDS ORDERED: Acetaminophen/Codeine 30-300mg Tablet ONE (00:15)
[2016-12-29] MEDS ORDERED: Acetaminophen 500 MG TAB ONE ×2 (00:16→00:17)
[2016-12-29] MEDS: Acetaminophen 500 MG TAB PO SCH ×2 (00:21→12:17)
[2016-12-29] MEDS: diphenhydrAMINE 25 MG CAP PO SCH ×2 (00:22→12:17)
[2016-12-29] MEDS: Vancomycin HCl 1 GM in Sodium Chloride 0.9% 250 ML 250 ML IVPB SCH ×2 (01:38→12:57)
[2016-12-29 06:03] LABS: Hemoglobin 14.7 g/dL (14.0-18.0); Platelet Count 172 thou/uL (130-400)
[2016-12-29 06:07] LABS: Calc. Creatinine Clearance 105 mL/min (70-130); Estimated GFR-MDRD Greater than 90
[2016-12-29] MEDS: Meropenem 1 GM in Sodium Chloride 0.9% 100 ML IVPB SCH ×3 (07:05→23:06)
[2016-12-29] MEDS: Floranex Packet PO SCH (08:46)
[2016-12-29] MEDS: Baclofen 10 MG TAB PO SCH ×4 (08:48→20:52)
[2016-12-29] MEDS: Famotidine 20 MG TAB PO SCH ×2 (08:49→20:53)
[2016-12-29] MEDS: Oxybutynin 5 MG TAB PO SCH ×2 (08:49→20:53)
[2016-12-29] MEDS: Pregabalin 75 MG CAP PO SCH ×2 (08:51→20:53)
[2016-12-29] MEDS: HYDROcodone/Acetaminophen 7.5/325 mg Tablet PO PRN (08:53)
[2016-12-29 12:26] LABS: Vancomycin, Trough 24.1 ug/mL
[2016-12-29 12:30] LABS: Bilirubin Negative (Negative); Blood, Urine Large (Negative); Clarity Cloudy (Clear); Glucose, Urine (Dipstick) Negative (Negative); Leukocyte Large (Negative); Nitrite Negative (Negative); Protein, Urine (Dipstick) 30 mg/dL (Neg-Trace); Specific Gravity, Urine 1.015 (1.005-1.030); Urobilinogen 0.2 mg/dL (0.2-1.0)
[2016-12-29 12:44] LABS: Bacteria/HPF 1+ HPF (None Seen); Crystals/HPF 2+ CA OXALATE HPF (Negative); Hyaline Casts/LPF NONE SEEN LPF (0-3 Hyaline); Other Casts/LPF None Seen LPF (0-3 Hyaline); Oval Fat Bodies/HPF None Seen HPF (None Seen); Renal Epithelial None Seen HPF (0-3); Sperm/HPF None Seen HPF (None Seen); Squamous Epithelial None Seen HPF (0-3); Transitional Epithelial NONE SEEN HPF (0-3); Trichomonas/HPF None Seen HPF (None Seen); Yeast-All Forms None Seen HPF (None Seen)
[2016-12-29] MEDS: Enoxaparin Sodium 30 MG/0.3 ML SYRINGE SC SCH (20:52)
[2016-12-30] MEDS: Acetaminophen 500 MG TAB PO SCH ×2 (01:03→12:02)
[2016-12-30] MEDS: diphenhydrAMINE 25 MG CAP PO SCH ×2 (01:04→12:03)
[2016-12-30] MEDS: Vancomycin HCl 750 MG in Sodium Chloride 0.9% 250 ML 250 ML IVPB SCH ×2 (01:29→13:11)
[2016-12-30] MEDS: Meropenem 1 GM in Sodium Chloride 0.9% 100 ML IVPB SCH ×3 (06:07→22:52)
[2016-12-30] MEDS: Floranex Packet PO SCH (09:06)
[2016-12-30] MEDS: Pregabalin 75 MG CAP PO SCH ×2 (09:06→20:30)
[2016-12-30] MEDS: Baclofen 10 MG TAB PO SCH ×4 (09:07→20:29)
[2016-12-30] MEDS: Famotidine 20 MG TAB PO SCH ×2 (09:07→20:25)
[2016-12-30] MEDS: Oxybutynin 5 MG TAB PO SCH ×2 (09:07→20:29)
[2016-12-30] MEDS: Enoxaparin Sodium 30 MG/0.3 ML SYRINGE SC SCH (20:29)
[2016-12-30] MEDS: HYDROcodone/Acetaminophen 7.5/325 mg Tablet PO PRN (22:52)
[2016-12-31] MEDS: Acetaminophen 500 MG TAB PO SCH ×2 (00:31→12:36)
[2016-12-31] MEDS: diphenhydrAMINE 25 MG CAP PO SCH ×2 (00:31→12:35)
[2016-12-31] MEDS: Vancomycin HCl 750 MG in Sodium Chloride 0.9% 250 ML 250 ML IVPB SCH ×2 (01:11→13:08)
[2016-12-31] MEDS: Meropenem 1 GM in Sodium Chloride 0.9% 100 ML IVPB SCH ×3 (06:03→22:47)
[2016-12-31 06:23] LABS: Calc. Creatinine Clearance 105 mL/min (70-130); Estimated GFR-MDRD Greater than 90
[2016-12-31 06:37] LABS: Hemoglobin 14.3 g/dL (14.0-18.0); Platelet Count 161 thou/uL (130-400)
[2016-12-31] MEDS: Famotidine 20 MG TAB PO SCH ×2 (08:50→20:47)
[2016-12-31] MEDS: Floranex Packet PO SCH (08:50)
[2016-12-31] MEDS: Baclofen 10 MG TAB PO SCH ×4 (08:50→20:48)
[2016-12-31] MEDS: Oxybutynin 5 MG TAB PO SCH ×2 (08:51→20:48)
[2016-12-31] MEDS: Pregabalin 75 MG CAP PO SCH ×2 (08:51→20:48)
[2016-12-31 13:48] LABS: Vancomycin, Trough 16.7 ug/mL
[2016-12-31] MEDS: Enoxaparin Sodium 30 MG/0.3 ML SYRINGE SC SCH (20:48)
[2016-12-31] MEDS: HYDROcodone/Acetaminophen 7.5/325 mg Tablet PO PRN (23:43)
[2017-01-01] MEDS: diphenhydrAMINE 25 MG CAP PO SCH ×2 (00:22→12:44)
[2017-01-01] MEDS: Acetaminophen 500 MG TAB PO SCH ×2 (00:22→12:44)
[2017-01-01] MEDS: Vancomycin HCl 750 MG in Sodium Chloride 0.9% 250 ML 250 ML IVPB SCH ×2 (01:02→13:01)
[2017-01-01] MEDS: Meropenem 1 GM in Sodium Chloride 0.9% 100 ML IVPB SCH ×3 (05:59→23:04)
[2017-01-01] MEDS: Famotidine 20 MG TAB PO SCH ×2 (09:14→20:04)
[2017-01-01] MEDS: Pregabalin 75 MG CAP PO SCH ×2 (09:14→20:05)
[2017-01-01] MEDS: Oxybutynin 5 MG TAB PO SCH ×2 (09:14→20:04)
[2017-01-01] MEDS: Floranex Packet PO SCH (09:14)
[2017-01-01] MEDS: Baclofen 10 MG TAB PO SCH ×4 (09:14→20:04)
[2017-01-01] MEDS: HYDROcodone/Acetaminophen 7.5/325 mg Tablet PO PRN ×2 (09:15→18:18)
[2017-01-01] MEDS: Enoxaparin Sodium 30 MG/0.3 ML SYRINGE SC SCH (20:05)
[2017-01-02] MEDS: Acetaminophen 500 MG TAB PO SCH ×2 (00:30→12:49)
[2017-01-02] MEDS: diphenhydrAMINE 25 MG CAP PO SCH ×2 (00:31→12:49)
[2017-01-02] MEDS: Vancomycin HCl 750 MG in Sodium Chloride 0.9% 250 ML 250 ML IVPB SCH ×2 (01:01→13:39)
[2017-01-02] MEDS: Meropenem 1 GM in Sodium Chloride 0.9% 100 ML IVPB SCH ×3 (06:01→23:03)
[2017-01-02 06:44] LABS: Platelet Count 138 thou/uL (130-400)
[2017-01-02 06:51] LABS: Calc. Creatinine Clearance 109 mL/min (70-130); Estimated GFR-MDRD Greater than 90
[2017-01-02] MEDS: Baclofen 10 MG TAB PO SCH ×4 (08:40→20:41)
[2017-01-02] MEDS: Pregabalin 75 MG CAP PO SCH ×2 (08:40→20:42)
[2017-01-02] MEDS: Famotidine 20 MG TAB PO SCH ×2 (08:40→20:49)
[2017-01-02] MEDS: Oxybutynin 5 MG TAB PO SCH ×2 (08:42→20:42)
[2017-01-02] MEDS: Floranex Packet PO SCH (08:42)
[2017-01-02] MEDS: Fluconazole 100 MG TAB PO SCH (09:08)
[2017-01-02 12:20] LABS: Vancomycin, Trough 15.7 ug/mL
[2017-01-02] MEDS: Enoxaparin Sodium 30 MG/0.3 ML SYRINGE SC SCH (20:41)
[2017-01-03] MEDS: diphenhydrAMINE 25 MG CAP PO SCH ×3 (00:42→23:29)
[2017-01-03] MEDS: Acetaminophen 500 MG TAB PO SCH ×3 (00:42→23:29)
[2017-01-03] MEDS: Vancomycin HCl 750 MG in Sodium Chloride 0.9% 250 ML 250 ML IVPB SCH ×2 (01:20→12:39)
[2017-01-03] MEDS: Meropenem 1 GM in Sodium Chloride 0.9% 100 ML IVPB SCH ×3 (05:58→23:24)
[2017-01-03] MEDS: HYDROcodone/Acetaminophen 7.5/325 mg Tablet PO PRN ×2 (07:34→21:09)
[2017-01-03] MEDS: Fluconazole 100 MG TAB PO SCH (09:18)
[2017-01-03] MEDS: Oxybutynin 5 MG TAB PO SCH ×2 (09:20→21:05)
[2017-01-03] MEDS: Baclofen 10 MG TAB PO SCH ×5 (09:20→21:06)
[2017-01-03] MEDS: Famotidine 20 MG TAB PO SCH ×2 (09:20→21:09)
[2017-01-03] MEDS: Floranex Packet PO SCH (09:21)
[2017-01-03] MEDS: Pregabalin 75 MG CAP PO SCH ×2 (09:21→21:06)
[2017-01-03] MEDS: Enoxaparin Sodium 30 MG/0.3 ML SYRINGE SC SCH (21:10)
[2017-01-04] MEDS: Vancomycin HCl 750 MG in Sodium Chloride 0.9% 250 ML 250 ML IVPB SCH ×2 (00:21→12:58)
[2017-01-04] MEDS: Meropenem 1 GM in Sodium Chloride 0.9% 100 ML IVPB SCH ×2 (06:11→16:59)
[2017-01-04 06:20] LABS: Hemoglobin 12.7 g/dL (14.0-18.0); Platelet Count 169 thou/uL (130-400)
[2017-01-04 06:31] LABS: Calc. Creatinine Clearance 100 mL/min (70-130); Estimated GFR-MDRD Greater than 90
[2017-01-04] MEDS: Fluconazole 100 MG TAB PO SCH (08:20)
[2017-01-04] MEDS: Oxybutynin 5 MG TAB PO SCH ×2 (08:21→20:59)
[2017-01-04] MEDS: Baclofen 10 MG TAB PO SCH ×4 (08:21→20:59)
[2017-01-04] MEDS: Pregabalin 75 MG CAP PO SCH ×2 (08:21→21:00)
[2017-01-04] MEDS: Floranex Packet PO SCH (08:23)
[2017-01-04] MEDS: HYDROcodone/Acetaminophen 7.5/325 mg Tablet PO PRN ×2 (09:18→21:01)
[2017-01-04] MEDS: Famotidine 20 MG TAB PO SCH ×2 (09:18→20:59)
[2017-01-04] MEDS: diphenhydrAMINE 25 MG CAP PO SCH (12:09)
[2017-01-04] MEDS: Acetaminophen 500 MG TAB PO SCH (12:09)
[2017-01-04] MEDS: Enoxaparin Sodium 30 MG/0.3 ML SYRINGE SC SCH (21:02)
[2017-01-05] MEDS: Meropenem 1 GM in Sodium Chloride 0.9% 100 ML IVPB SCH ×4 (00:03→23:00)
[2017-01-05] MEDS: diphenhydrAMINE 25 MG CAP PO SCH ×2 (00:04→12:46)
[2017-01-05] MEDS: Acetaminophen 500 MG TAB PO SCH ×2 (00:04→12:47)
[2017-01-05] MEDS: Vancomycin HCl 750 MG in Sodium Chloride 0.9% 250 ML 250 ML IVPB SCH (00:56)
[2017-01-05] MEDS: Floranex Packet PO SCH (08:02)
[2017-01-05] MEDS: Famotidine 20 MG TAB PO SCH ×2 (08:02→20:37)
[2017-01-05] MEDS: Baclofen 10 MG TAB PO SCH ×4 (08:02→20:37)
[2017-01-05] MEDS: Pregabalin 75 MG CAP PO SCH ×2 (08:03→20:38)
[2017-01-05] MEDS: Fluconazole 100 MG TAB PO SCH (08:03)
[2017-01-05] MEDS: Oxybutynin 5 MG TAB PO SCH ×2 (08:03→20:37)
[2017-01-05] MEDS: HYDROcodone/Acetaminophen 7.5/325 mg Tablet PO PRN (08:04)
[2017-01-05 12:26] LABS: Vancomycin, Trough 13.5 ug/mL
[2017-01-05] MEDS: Vancomycin HCl 1 GM in Sodium Chloride 0.9% 250 ML 250 ML IVPB SCH (13:30)
[2017-01-05] MEDS: Enoxaparin Sodium 30 MG/0.3 ML SYRINGE SC SCH (20:38)
[2017-01-06] MEDS: diphenhydrAMINE 25 MG CAP PO SCH ×2 (00:24→11:48)
[2017-01-06] MEDS: Acetaminophen 500 MG TAB PO SCH ×2 (00:24→11:47)
[2017-01-06] MEDS: Vancomycin HCl 1 GM in Sodium Chloride 0.9% 250 ML 250 ML IVPB SCH ×2 (01:09→12:22)
[2017-01-06] MEDS: Meropenem 1 GM in Sodium Chloride 0.9% 100 ML IVPB SCH ×2 (05:56→15:08)
[2017-01-06 06:21] LABS: Hemoglobin 13.9 g/dL (14.0-18.0); Platelet Count 170 thou/uL (130-400)
[2017-01-06 06:29] VITALS: BP 139/86; TEMP 97.8
[2017-01-06 06:59] LABS: Calc. Creatinine Clearance 88 mL/min (70-130); Estimated GFR-MDRD Greater than 90
[2017-01-06] MEDS: Fluconazole 100 MG TAB PO SCH (09:49)
[2017-01-06] MEDS: Pregabalin 75 MG CAP PO SCH (09:49)
[2017-01-06] MEDS: Oxybutynin 5 MG TAB PO SCH (09:49)
[2017-01-06] MEDS: Floranex Packet PO SCH (09:50)
[2017-01-06] MEDS: Baclofen 10 MG TAB PO SCH ×2 (09:50→12:23)
[2017-01-06] MEDS: Famotidine 20 MG TAB PO SCH (09:50)
[2017-01-06] MEDS: HYDROcodone/Acetaminophen 7.5/325 mg Tablet PO PRN (11:46)
== END 2017-01-06 16:00 | disposition home health service (06) | DRG 539 ==
LOC: BURMED 12-11 12:21 → UNDOADMIN 12-11 12:21 → BURMED 12-11 12:22
PROVIDERS: ADMIT Family Medicine; ATTEND Family Medicine
DX: M86.9 Osteomyelitis, unspecified (principal); G82.54 Quadriplegia, C5-C7 incomplete; E43 Unspecified severe protein-calorie malnutrition; L89.154 Pressure ulcer of sacral region, stage 4; N31.9 Neuromuscular dysfunction of bladder, unspecified; B37.49 Other urogenital candidiasis; Z68.1 Body mass index [BMI] 19.9 or less, adult; Z93.3 Colostomy status; K21.9 Gastro-esophageal reflux disease without esophagitis; K59.00 Constipation, unspecified; Z86.718 Personal history of other venous thrombosis and embolism; N32.89 Other specified disorders of bladder; L89.899 Pressure ulcer of other site, unspecified stage; Z88.1 Allergy status to other antibiotic agents
CPT/HCPCS: 36415; 80053; 80202; 81001; 82565; 85014; 85018; 85025; 85049; 86140; 86141; 87086; 97602; A4216; C1751; G8981-GP-CN; G8982-GP-CN; G8983-GP-CN; G8987-GO-CL; G8988-GO-CL; G8989-GO-CL; G8990-GP-CH; G8991-GP-CH; J1650; J2185; J3370; J7050; Q0162

== ENCOUNTER 2017-07-14 12:22 | Outpatient (CLI) | payer MEDICARE, MEDICAID ==
--- NOTE | 2017-07-14 16:18 | RAD ---
CHEST TWO VIEWS: 07/14/17 Upright AP and lateral views are provided in a wheelchair and are compared with a 06/29/16 study. Marked dextroscoliosis is seen as usual. The lungs are clear. There are no infiltrates or effusions. The heart size is normal. IMPRESSION: No acute thoracic findings. POS: HOME
[2017-07-14 18:36] LABS: ALT (SGPT) 12 U/L (8-55); AST (SGOT) 21 U/L (5-34); Albumin 3.9 g/dL (3.5-5.0); Alkaline Phosphatase 152 U/L (40-150); Anion Gap 15 mmol/L (10-20); BUN (Urea Nitrogen) 7 mg/dL (8.9-20.6); Bilirubin, Total 0.5 mg/dL (0.2-1.2); Calc. Creatinine Clearance 0 mL/min (70-130); Calcium 9.3 mg/dL (7.8-10.44); Carbon Dioxide 24 mmol/L (22-29); Chloride 106 mmol/L (98-107); Estimated GFR-MDRD Greater than 90; Globulin 3.6 g/dL (2.4-3.5); Glucose 109 mg/dL (70-105); Potassium 4.2 mmol/L (3.5-5.1); Protein, Total 7.5 g/dL (6.0-8.3); Sodium 141 mmol/L (136-145)
[2017-07-14 18:39] LABS: #Eosinphils 0.2 thou/uL (0.0-0.7); #Lymphocytes 1.9 thou/uL (1.20-3.40); #Monocytes 0.5 thou/uL (0.11-0.59); #Neutrophils 3.9 thou/uL (1.40-6.50); %Basophils 0.4 % (0.0-1.0); %Eosinophils 2.9 % (0.0-10.0); %Neutrophils 59.7 % (42.0-75.0); Mean Corpuscular Hemoglobin 31.3 pg (27.0-31.0); Mean Corpuscular Volume 92.1 fl (80.0-94.0); Mean Platelet Volume 8.8 fL (7.4-10.4); Platelet Count 224 thou/uL (130-400); RBC Distribution Width 13.3 % (11.5-14.5); Red Blood Cell (RBC) Count 4.78 mill/uL (4.70-6.10); White Blood Cell (WBC) Count 6.6 thou/uL (4.8-10.8)
== END 2017-07-14 12:23 | disposition home or self-care (01) ==
LOC: BUREKG 12:22
PROVIDERS: ATTEND Family Medicine
DX: Z01.818 Encounter for other preprocedural examination (principal); N21.0 Calculus in bladder
CPT/HCPCS: 36415; 71046; 80053; 85025

== ENCOUNTER 2017-07-28 16:31 | Outpatient (CLI) | payer MEDICARE, MEDICAID ==
--- NOTE | 2017-07-28 19:48 | RAD ---
PELVIS: 07/28/2017 COMPARISON: 10/21/2016 FINDINGS: Erosion of both femoral heads and dislocations and subluxations of each hip are present, as usual. T heir appearance has changed little over time. The area around the right acetabulum seems a little mo re lucent a little more irregular than it was last year. I cannot rule out bony infection here. Thi s would be better assessed by MRI. The inferior pubic rami/ischial tuberosities are not visible for true assessment. The upper part of the bony pelvis appears intact. IMPRESSION: Chronic changes with some increased lucency around the right acetabular region. I cannot exclude pro gression of infection here. MRI would be a better assessment of this. CODE T POS: HOME
== END 2017-07-28 16:32 | disposition home or self-care (01) ==
LOC: BURRAD 16:31
PROVIDERS: ATTEND Family Medicine
DX: L89.314 Pressure ulcer of right buttock, stage 4 (principal); L89.324 Pressure ulcer of left buttock, stage 4
CPT/HCPCS: 72170

== ENCOUNTER 2017-08-20 10:32 | Inpatient (IN) | payer MEDICARE, OTHER ==
[2017-08-20] MEDS ORDERED: Sulfameth/Trimethoprim DS 800-160mg TAB ONE (21:03)
[2017-08-20] MEDS: Oxybutynin 5 MG TAB PO SCH (22:14)
[2017-08-20] MEDS: Baclofen 10 MG TAB PO SCH (22:14)
[2017-08-20] MEDS: Sulfameth/Trimethoprim DS 800-160mg TAB PO SCH (22:14)
[2017-08-20] MEDS: Pregabalin 75 MG CAP PO SCH (22:15)
[2017-08-21] MEDS: Floranex Packet PO SCH (09:20)
[2017-08-21] MEDS: Baclofen 10 MG TAB PO SCH ×4 (09:21→21:39)
[2017-08-21] MEDS: Sulfameth/Trimethoprim DS 800-160mg TAB PO SCH ×2 (09:21→21:39)
[2017-08-21] MEDS: Multivit, Therapeutic 1 TAB PO SCH (09:21)
[2017-08-21] MEDS: Pregabalin 75 MG CAP PO SCH ×2 (09:21→21:39)
[2017-08-21] MEDS: Oxybutynin 5 MG TAB PO SCH ×2 (09:22→21:39)
[2017-08-22] MEDS: Pregabalin 75 MG CAP PO SCH ×2 (08:23→23:17)
[2017-08-22] MEDS: Oxybutynin 5 MG TAB PO SCH ×2 (08:23→23:16)
[2017-08-22] MEDS: Sulfameth/Trimethoprim DS 800-160mg TAB PO SCH ×2 (08:23→23:16)
[2017-08-22] MEDS: Baclofen 10 MG TAB PO SCH ×4 (08:23→23:17)
[2017-08-22] MEDS: Multivit, Therapeutic 1 TAB PO SCH (08:23)
[2017-08-22] MEDS: Floranex Packet PO SCH (08:23)
[2017-08-23] MEDS: Floranex Packet PO SCH (08:26)
[2017-08-23] MEDS: Baclofen 10 MG TAB PO SCH ×4 (08:26→21:32)
[2017-08-23] MEDS: Sulfameth/Trimethoprim DS 800-160mg TAB PO SCH ×2 (08:26→21:32)
[2017-08-23] MEDS: Pregabalin 75 MG CAP PO SCH ×2 (08:26→21:33)
[2017-08-23] MEDS: Oxybutynin 5 MG TAB PO SCH ×2 (08:26→21:33)
[2017-08-23] MEDS: Multivit, Therapeutic 1 TAB PO SCH (08:26)
[2017-08-24] MEDS: Floranex Packet PO SCH (08:27)
[2017-08-24] MEDS: Oxybutynin 5 MG TAB PO SCH ×2 (08:28→21:49)
[2017-08-24] MEDS: Sulfameth/Trimethoprim DS 800-160mg TAB PO SCH ×2 (08:28→21:49)
[2017-08-24] MEDS: Baclofen 10 MG TAB PO SCH ×4 (08:28→21:50)
[2017-08-24] MEDS: Pregabalin 75 MG CAP PO SCH ×2 (08:28→21:50)
[2017-08-24] MEDS: Multivit, Therapeutic 1 TAB PO SCH (08:28)
[2017-08-25] MEDS: Oxybutynin 5 MG TAB PO SCH ×2 (09:19→20:43)
[2017-08-25] MEDS: Sulfameth/Trimethoprim DS 800-160mg TAB PO SCH ×2 (09:20→20:43)
[2017-08-25] MEDS: Floranex Packet PO SCH (09:20)
[2017-08-25] MEDS: Baclofen 10 MG TAB PO SCH ×4 (09:20→20:43)
[2017-08-25] MEDS: Multivit, Therapeutic 1 TAB PO SCH (09:20)
[2017-08-25] MEDS: Pregabalin 75 MG CAP PO SCH ×2 (09:20→20:43)
[2017-08-26] MEDS: Sulfameth/Trimethoprim DS 800-160mg TAB PO SCH ×2 (09:18→21:11)
[2017-08-26] MEDS: Oxybutynin 5 MG TAB PO SCH ×2 (09:18→21:11)
[2017-08-26] MEDS: Multivit, Therapeutic 1 TAB PO SCH (09:18)
[2017-08-26] MEDS: Pregabalin 75 MG CAP PO SCH ×2 (09:18→21:11)
[2017-08-26] MEDS: Baclofen 10 MG TAB PO SCH ×4 (09:18→21:10)
[2017-08-26] MEDS: Floranex Packet PO SCH (09:19)
[2017-08-27] MEDS: Sulfameth/Trimethoprim DS 800-160mg TAB PO SCH ×2 (08:57→21:24)
[2017-08-27] MEDS: Floranex Packet PO SCH (08:57)
[2017-08-27] MEDS: Multivit, Therapeutic 1 TAB PO SCH (08:58)
[2017-08-27] MEDS: Pregabalin 75 MG CAP PO SCH ×2 (08:58→21:24)
[2017-08-27] MEDS: Baclofen 10 MG TAB PO SCH ×4 (08:59→21:24)
[2017-08-27] MEDS: Oxybutynin 5 MG TAB PO SCH ×2 (08:59→21:24)
[2017-08-28] MEDS: Multivit, Therapeutic 1 TAB PO SCH (08:29)
[2017-08-28] MEDS: Baclofen 10 MG TAB PO SCH ×4 (08:29→20:55)
[2017-08-28] MEDS: Pregabalin 75 MG CAP PO SCH ×2 (08:29→20:55)
[2017-08-28] MEDS: Oxybutynin 5 MG TAB PO SCH ×2 (08:29→20:55)
[2017-08-28] MEDS: Floranex Packet PO SCH (08:29)
[2017-08-28] MEDS: Sulfameth/Trimethoprim DS 800-160mg TAB PO SCH ×2 (08:29→20:55)
[2017-08-29] MEDS: Multivit, Therapeutic 1 TAB PO SCH (10:16)
[2017-08-29] MEDS: Pregabalin 75 MG CAP PO SCH ×2 (10:16→20:49)
[2017-08-29] MEDS: Oxybutynin 5 MG TAB PO SCH ×2 (10:18→20:48)
[2017-08-29] MEDS: Baclofen 10 MG TAB PO SCH ×4 (10:19→20:47)
[2017-08-29] MEDS: Sulfameth/Trimethoprim DS 800-160mg TAB PO SCH ×2 (10:19→20:47)
[2017-08-29] MEDS: Floranex Packet PO SCH (10:20)
[2017-08-30] MEDS: Multivit, Therapeutic 1 TAB PO SCH (09:44)
[2017-08-30] MEDS: Pregabalin 75 MG CAP PO SCH ×2 (09:44→21:14)
[2017-08-30] MEDS: Sulfameth/Trimethoprim DS 800-160mg TAB PO SCH ×2 (09:44→21:14)
[2017-08-30] MEDS: Oxybutynin 5 MG TAB PO SCH ×2 (09:45→21:14)
[2017-08-30] MEDS: Baclofen 10 MG TAB PO SCH ×4 (09:45→21:14)
[2017-08-30] MEDS: Floranex Packet PO SCH (09:45)
[2017-08-30 22:20] VITALS: BMI 14.6
[2017-08-31 05:52] LABS: #Basophils 0.1 thou/uL (0.0-0.2); #Eosinphils 0.5 thou/uL (0.0-0.7); #Lymphocytes 2.6 thou/uL (1.20-3.40); #Monocytes 0.7 thou/uL (0.11-0.59); #Neutrophils 5.4 thou/uL (1.40-6.50); %Basophils 0.9 % (0.0-1.0); %Eosinophils 5.3 % (0.0-10.0); %Lymphocytes 27.8 % (21.0-51.0); %Monocytes 7.6 % (0.0-10.0); %Neutrophils 58.4 % (42.0-75.0); Hemoglobin 13.6 g/dL (14.0-18.0); Mean Corpuscular HGB CONC 34.6 g/dL (32.0-36.0); Mean Corpuscular Hemoglobin 28.5 pg (27.0-31.0); Mean Corpuscular Volume 82.4 fL (78.0-98.0); Mean Platelet Volume 6.8 fL (7.4-10.4); Platelet Count 223 thou/uL (130-400); Red Blood Cell (RBC) Count 4.78 mill/uL (4.70-6.10); White Blood Cell (WBC) Count 9.2 thou/uL (4.8-10.8)
[2017-08-31 06:01] LABS: Anion Gap 11 mmol/L (10-20); BUN (Urea Nitrogen) 18 mg/dL (8.9-20.6); Calc. Creatinine Clearance 92 mL/min (70-130); Calcium 9.2 mg/dL (7.8-10.44); Carbon Dioxide 25 mmol/L (22-29); Chloride 105 mmol/L (98-107); Estimated GFR-MDRD Greater than 90; Glucose 97 mg/dL (70-105); Potassium 4.3 mmol/L (3.5-5.1); Sodium 137 mmol/L (136-145)
[2017-08-31] MEDS: Pregabalin 75 MG CAP PO SCH ×2 (10:19→21:50)
[2017-08-31] MEDS: Floranex Packet PO SCH (10:19)
[2017-08-31] MEDS: Multivit, Therapeutic 1 TAB PO SCH (10:20)
[2017-08-31] MEDS: Sulfameth/Trimethoprim DS 800-160mg TAB PO SCH ×2 (10:20→21:50)
[2017-08-31] MEDS: Oxybutynin 5 MG TAB PO SCH ×2 (10:21→21:49)
[2017-08-31] MEDS: Baclofen 10 MG TAB PO SCH ×4 (10:21→21:49)
[2017-08-31 12:28] LABS: CRP (Inflammatory) 0.89 mg/dL (= or < 0.5)
[2017-09-01 06:57] VITALS: BP 132/94; TEMP 98.2
[2017-09-01] MEDS: Baclofen 10 MG TAB PO SCH ×2 (09:17→12:24)
[2017-09-01] MEDS: Floranex Packet PO SCH (09:17)
[2017-09-01] MEDS: Pregabalin 75 MG CAP PO SCH (09:18)
[2017-09-01] MEDS: Sulfameth/Trimethoprim DS 800-160mg TAB PO SCH (09:18)
[2017-09-01] MEDS: Multivit, Therapeutic 1 TAB PO SCH (09:18)
[2017-09-01] MEDS: Oxybutynin 5 MG TAB PO SCH (09:18)
== END 2017-09-01 16:04 | disposition home health service (06) | DRG 592 ==
LOC: BURMED 14:45
PROVIDERS: ADMIT Family Medicine; ATTEND Family Medicine
DX: L97.129 Non-pressure chronic ulcer of left thigh with unspecified severity (principal); G82.54 Quadriplegia, C5-C7 incomplete; E43 Unspecified severe protein-calorie malnutrition; M86.652 Other chronic osteomyelitis, left thigh; K59.2 Neurogenic bowel, not elsewhere classified; M86.651 Other chronic osteomyelitis, right thigh; L97.119 Non-pressure chronic ulcer of right thigh with unspecified severity; N31.9 Neuromuscular dysfunction of bladder, unspecified; Z93.3 Colostomy status; Z86.718 Personal history of other venous thrombosis and embolism; Z86.711 Personal history of pulmonary embolism; I10 Essential (primary) hypertension; N21.0 Calculus in bladder; N20.0 Calculus of kidney
CPT/HCPCS: 36415; 80048; 85025; 86140; G8990-GP-CH; G8991-GP-CH

== ENCOUNTER 2017-11-03 13:55 | Emergency (ER) | payer MEDICARE, MEDICAID ==
[2017-11-03] MEDS ORDERED: Ondansetron HCl/PF 4 MG/2 ML Vial ONE (14:23)
[2017-11-03] MEDS ORDERED: Ampicillin/Sulbactam 1.5 GM VIAL ONE (15:22)
[2017-11-03] MEDS ORDERED: diphenhydrAMINE 50 MG/ML VIAL ONE (15:29)
[2017-11-03] MEDS ORDERED: Acetaminophen 500 MG TAB ONE (16:07)
== END 2017-11-03 16:12 | disposition home or self-care (01) ==
LOC: BURERS 13:55
DX: N39.0 Urinary tract infection, site not specified (principal); I10 Essential (primary) hypertension; Z79.899 Other long term (current) drug therapy
CPT/HCPCS: 87086; 87324; 87449; 96374; 96375; J0295; J1200; J2405

== ENCOUNTER 2017-12-22 14:51 | Emergency (ER) | payer MEDICARE, MEDICAID ==
[2017-12-22 15:46] LABS: Clarity Turbid (Clear); Leukocyte Small (Negative); Nitrite Positive (Negative); Specific Gravity, Urine 1.025 (1.005-1.030); pH, Urine 6.5 (5.0-9.0)
[2017-12-22 15:47] LABS: Bilirubin Negative (Negative); Blood, Urine Large (Negative); Glucose, Urine (Dipstick) Negative (Negative); Protein, Urine (Dipstick) > or equal to 300 mg/dL (Neg-Trace)
[2017-12-22 15:51] LABS: Bacteria/HPF 4+ HPF (None Seen); Sperm/HPF 4+ HPF (None Seen); Squamous Epithelial 0-3 HPF (0-3); Yeast-All Forms 1+ HPF (None Seen)
[2017-12-22 16:07] LABS: #Eosinphils 0.1 thou/uL (0.0-0.7); #Lymphocytes 1.4 thou/uL (1.20-3.40); #Neutrophils 7.9 thou/uL (1.40-6.50); %Basophils 0.2 % (0.0-1.0); %Lymphocytes 13.8 % (21.0-51.0); %Monocytes 9.2 % (0.0-10.0); %Neutrophils 75.9 % (42.0-75.0); Hemoglobin 13.7 g/dL (14.0-18.0); Mean Corpuscular HGB CONC 34.9 g/dL (32.0-36.0); Mean Platelet Volume 7.3 fL (7.4-10.4); Platelet Count 241 thou/uL (130-400); RBC Distribution Width 12.5 % (11.5-14.5); Red Blood Cell (RBC) Count 4.56 mill/uL (4.70-6.10); White Blood Cell (WBC) Count 10.4 thou/uL (4.8-10.8)
[2017-12-22 16:24] LABS: ALT (SGPT) 12 U/L (8-55); AST (SGOT) 16 U/L (5-34); Albumin 3.8 g/dL (3.5-5.0); Alkaline Phosphatase 109 U/L (40-150); Anion Gap 12 mmol/L (10-20); BUN (Urea Nitrogen) 8 mg/dL (8.9-20.6); Bilirubin, Total 0.4 mg/dL (0.2-1.2); Calc. Creatinine Clearance 0 mL/min (70-130); Calcium 9.8 mg/dL (7.8-10.44); Carbon Dioxide 27 mmol/L (22-29); Chloride 102 mmol/L (98-107); Estimated GFR-MDRD Greater than 90; Globulin 4.6 g/dL (2.4-3.5); Glucose 102 mg/dL (70-105); Protein, Total 8.4 g/dL (6.0-8.3); Sodium 137 mmol/L (136-145)
[2017-12-22] MEDS ORDERED: Amoxicillin/Potassium Clav 875 MG TAB ONE (16:41)
== END 2017-12-22 16:57 | disposition home or self-care (01) ==
LOC: BURERS 14:51
DX: N39.0 Urinary tract infection, site not specified (principal); I10 Essential (primary) hypertension; Z79.899 Other long term (current) drug therapy
CPT/HCPCS: 36415; 80053; 81003; 81015; 85025; 87077; 87086; 87186; 99284

== ENCOUNTER 2018-08-12 11:59 | Outpatient (CLI) | payer MEDICARE, MEDICAID ==
--- NOTE | 2018-08-12 18:46 | RAD ---
ABDOMEN: 08/12/18 Comparison is made with the 07/28/17 study. There is a large amount of gas and fecal material in the c olon. As such, this would easily obscure some calculi. No specific calcifications are seen that I cou ld guarantee are calculi. A small rounded calcification in the pelvis on the right seems more likely to be a phlebolith. A suprapubic catheter is seen in place. The abdominal gas pattern is nonspecific with gas in the large and small bowel. What I presume to be a vena cava filter is seen in the abdomen but is to the left of midline. It is not different in appearance or location than the 2018 study. Ch ronic hip dislocations and erosion of the femoral heads is noted. IMPRESSION: Nonspecific abdominal findings. This study is not able to resolve any ureteral or renal calculi due t o the large amount of gas and fecal material. POS: HOME
== END 2018-08-12 12:00 | disposition home or self-care (01) ==
LOC: BURRAD 11:59
PROVIDERS: ATTEND Urology
DX: N20.0 Calculus of kidney (principal)
CPT/HCPCS: 74018

== ENCOUNTER 2020-09-09 23:17 | Emergency (ER) | payer MEDICARE, OTHER ==
[2020-09-10 00:21] LABS: #Basophils 0.1 thou/uL (0.0-0.2); #Lymphocytes 1.3 thou/uL (1.20-3.40); #Monocytes 0.7 thou/uL (0.11-0.59); #Neutrophils 8.8 thou/uL (1.40-6.50); %Basophils 0.7 % (0.0-1.0); %Eosinophils 0.2 % (0.0-10.0); %Lymphocytes 11.6 % (21.0-51.0); %Monocytes 6.1 % (0.0-10.0); %Neutrophils 81.4 % (42.0-75.0); Hemoglobin 12.6 g/dL (14.0-18.0); Mean Corpuscular HGB CONC 33.4 g/dL (32.0-36.0); Mean Corpuscular Volume 92.8 fL (78.0-98.0); Mean Platelet Volume 6.4 fL (7.4-10.4); Platelet Count 233 thou/uL (130-400); RBC Distribution Width 12.7 % (11.5-14.5); Red Blood Cell (RBC) Count 4.06 mill/uL (4.70-6.10); White Blood Cell (WBC) Count 10.9 thou/uL (4.8-10.8)
[2020-09-10 00:34] LABS: Acetaminophen Less than 6.0 mcg/mL (10.0-30.0); Alcohol Less than 10 mg/dL (Less than 10); Salicylate Less than 8.0 mg/dL (15.0-30.0)
[2020-09-10] MEDS ORDERED: Mag-Al Plus 1200 MG/1200 MG/120 MG/30 ML UDCUP ONE (00:34)
[2020-09-10] MEDS ORDERED: Lidocaine Viscous Sol 2% 15 ml UD Cup ONE (00:34)
[2020-09-10 00:36] LABS: ALT (SGPT) 13 U/L (8-55); AST (SGOT) 16 U/L (5-34); Albumin 2.8 g/dL (3.5-5.0); Alkaline Phosphatase 92 U/L (40-110); Anion Gap 14 mmol/L (10-20); BUN (Urea Nitrogen) 21 mg/dL (8.9-20.6); Bilirubin, Total 0.2 mg/dL (0.2-1.2); Calc. Creatinine Clearance 0 mL/min (70-130); Calcium 8.6 mg/dL (7.8-10.44); Carbon Dioxide 24 mmol/L (22-29); Chloride 102 mmol/L (98-107); Globulin 3.9 g/dL (2.4-3.5); Glucose 121 mg/dL (70-105); Protein, Total 6.7 g/dL (6.0-8.3); Sodium 135 mmol/L (136-145)
[2020-09-10 01:03] LABS: Amphetamine Not Detected (NotDetected); Barbiturates Screen Not Detected (NotDetected); Benzodiazepine Screen Not Detected (NotDetected); Cocaine Metabolite Screen Not Detected (NotDetected); Medtox Control Line Valid? VALID (VALID); Methadone Not Detected (NotDetected); Methamphetamine Not Detected (NotDetected); Opiate Screen Not Detected (NotDetected); Oxycodone Screen Not Detected (NotDetected); Phencyclidine (PCP) Not Detected (NotDetected); THC/Cannabinoid Screen Detected (NotDetected); Tricyclic Screen Not Detected (NotDetected)
== END 2020-09-10 01:53 | disposition home or self-care (01) ==
LOC: BURERS 23:17
DX: E86.0 Dehydration (principal); I10 Essential (primary) hypertension; Z79.899 Other long term (current) drug therapy
CPT/HCPCS: 70450; 71045; 80053; 80306; 80307; 83605; 84484; 85025; 93005

== ENCOUNTER 2020-09-18 14:51 | Observation (INO) | payer MEDICARE, MEDICAID ==
[2020-09-18 15:48] LABS: Hemoglobin 13.8 g/dL (14.0-18.0); Mean Corpuscular HGB CONC 33.2 g/dL (32.0-36.0); Mean Corpuscular Hemoglobin 30.9 pg (27.0-31.0); Mean Corpuscular Volume 93.1 fL (78.0-98.0); Mean Platelet Volume 7.3 fL (7.4-10.4); Platelet Count 190 thou/uL (130-400); RBC Distribution Width 14.2 % (11.5-14.5); Red Blood Cell (RBC) Count 4.45 mill/uL (4.70-6.10); White Blood Cell (WBC) Count 7.4 thou/uL (4.8-10.8)
[2020-09-18 16:04] LABS: ALT (SGPT) 7 U/L (8-55); AST (SGOT) 12 U/L (5-34); Albumin 3.1 g/dL (3.5-5.0); Alkaline Phosphatase 118 U/L (40-110); Anion Gap 16 mmol/L (10-20); BUN (Urea Nitrogen) 19 mg/dL (8.9-20.6); Bilirubin, Total 0.2 mg/dL (0.2-1.2); CK (CPK) 26 U/L (30-200); Calc. Creatinine Clearance 0 mL/min (70-130); Calcium 9.6 mg/dL (7.8-10.44); Carbon Dioxide 25 mmol/L (22-29); Chloride 100 mmol/L (98-107); Globulin 4.9 g/dL (2.4-3.5); Glucose 87 mg/dL (70-105); Sodium 136 mmol/L (136-145)
[2020-09-18 16:29] LABS: Bilirubin Negative (Negative); Blood, Urine Moderate (Negative); Clarity Clear (Clear); Glucose, Urine (Dipstick) Negative (Negative); Ketone, Urine Negative (Negative); Leukocyte Moderate (Negative); Nitrite Negative (Negative); Protein, Urine (Dipstick) Negative (Neg-Trace); Specific Gravity, Urine 1.015 (1.005-1.030); Urobilinogen 0.2 mg/dL (Less than 2); pH, Urine 6.5 (5.0-9.0)
[2020-09-18 16:40] LABS: Amphetamine Not Detected (NotDetected); Barbiturates Screen Not Detected (NotDetected); Benzodiazepine Screen Not Detected (NotDetected); Cocaine Metabolite Screen Not Detected (NotDetected); Medtox Control Line Valid? VALID (VALID); Methadone Not Detected (NotDetected); Methamphetamine Not Detected (NotDetected); Opiate Screen Detected (NotDetected); Oxycodone Screen Not Detected (NotDetected); Phencyclidine (PCP) Not Detected (NotDetected); THC/Cannabinoid Screen Detected (NotDetected); Tricyclic Screen Not Detected (NotDetected)
[2020-09-18 16:41] LABS: RBC/HPF 21-50 HPF (0-3); Squamous Epithelial None Seen HPF (0-3); WBC/HPF 21-50 HPF (0-3)
[2020-09-18 16:42] LABS: Calcium Oxalate Crystals Rare HPF (None Seen)
[2020-09-18 17:21] LABS: Band 10 % (5-11); Lymphocytes 21 % (21-51); MDiff Complete? YES; Monocytes 4 % (0-10); Neutrophil 65 % (42-75)
[2020-09-18] MEDS ORDERED: Acetaminophen 325 MG TAB PO PRN (19:30)
[2020-09-18] MEDS ORDERED: Ondansetron PF 4 MG/2 ML Vial IVP PRN (19:30)
[2020-09-18] MEDS ORDERED: Ondansetron ODT 4 MG TAB SL PRN (19:30)
[2020-09-18] MEDS: Pregabalin 75 MG CAP PO SCH (21:09)
[2020-09-18] MEDS: OXcarbazepine 150 MG TAB PO SCH (21:09)
[2020-09-18] MEDS: Amoxicillin/Potassium Clav 875 MG TAB PO SCH (21:09)
[2020-09-18] MEDS: Baclofen 10 MG TAB PO SCH (21:09)
[2020-09-18] MEDS: Sodium Chloride 0.9% 1,000 ML IV SCH (21:11)
[2020-09-19] MEDS: OXcarbazepine 150 MG TAB PO SCH (08:57)
[2020-09-19] MEDS: Pregabalin 75 MG CAP PO SCH (08:57)
[2020-09-19] MEDS: Baclofen 10 MG TAB PO SCH ×3 (08:57→16:34)
[2020-09-19] MEDS: Amoxicillin/Potassium Clav 875 MG TAB PO SCH (08:58)
[2020-09-19] MEDS ORDERED: Oxybutynin ER 5 MG TAB PO SCH (09:00)
[2020-09-19] MEDS ORDERED: Hydrocodone-Acetamin 15 ML UDCUP ONE ×2 (09:02→16:25)
[2020-09-19] MEDS: Hydrocodone-Acetamin 15 ML UDCUP PO PRN ×2 (09:13→16:33)
[2020-09-19 10:11] VITALS: BMI 13.1
[2020-09-19 14:19] LABS: #Lymphocytes 1.3 thou/uL (1.20-3.40); #Monocytes 0.6 thou/uL (0.11-0.59); #Neutrophils 4.5 thou/uL (1.40-6.50); %Basophils 0.2 % (0.0-1.0); %Eosinophils 0.5 % (0.0-10.0); %Lymphocytes 19.8 % (21.0-51.0); %Monocytes 8.7 % (0.0-10.0); %Neutrophils 70.8 % (42.0-75.0); Hemoglobin 12.1 g/dL (14.0-18.0); Mean Corpuscular HGB CONC 31.9 g/dL (32.0-36.0); Mean Corpuscular Hemoglobin 30.5 pg (27.0-31.0); Mean Corpuscular Volume 95.7 fL (78.0-98.0); Mean Platelet Volume 6.6 fL (7.4-10.4); Platelet Count 169 thou/uL (130-400); RBC Distribution Width 14.2 % (11.5-14.5); Red Blood Cell (RBC) Count 3.96 mill/uL (4.70-6.10); White Blood Cell (WBC) Count 6.3 thou/uL (4.8-10.8)
[2020-09-19 16:15] LABS: SARS-CoV-2 PCR by NAA Not Detected (NotDetected)
[2020-09-19] MEDS: Sodium Chloride 0.9% 1,000 ML IV SCH (16:34)
[2020-09-19 18:51] VITALS: BP 133/97; TEMP 99.1
== END 2020-09-19 18:45 | disposition home or self-care (01) ==
LOC: BURERS 14:51 → BURMED 16:45
PROVIDERS: ADMIT Family Medicine; ATTEND Family Medicine
DX: E46 Unspecified protein-calorie malnutrition (principal); E86.0 Dehydration; G82.50 Quadriplegia, unspecified; I10 Essential (primary) hypertension; G89.4 Chronic pain syndrome; D64.9 Anemia, unspecified; F12.10 Cannabis abuse, uncomplicated; R62.7 Adult failure to thrive; R63.4 Abnormal weight loss; Z68.1 Body mass index [BMI] 19.9 or less, adult; Z79.2 Long term (current) use of antibiotics; Z79.899 Other long term (current) drug therapy; Z88.0 Allergy status to penicillin; Z88.1 Allergy status to other antibiotic agents; Z88.5 Allergy status to narcotic agent; Z88.6 Allergy status to analgesic agent; Z91.018 Allergy to other foods; Z91.041 Radiographic dye allergy status; Z96.0 Presence of urogenital implants; Z93.3 Colostomy status; Z20.822 Contact with and (suspected) exposure to COVID-19
CPT/HCPCS: 36415; 71045; 80053; 80306; 81003; 81015; 82274; 82550; 83605; 83735; 84484; 85025; 87086; 93005; G0378; J2405; J7050; U0003; U0005

== ENCOUNTER 2020-11-08 13:04 | Emergency (ER) | payer MEDICARE, OTHER ==
[2020-11-08 13:53] LABS: #Lymphocytes 0.8 thou/uL (1.20-3.40); #Monocytes 0.3 thou/uL (0.11-0.59); #Neutrophils 5.6 thou/uL (1.40-6.50); %Basophils 0.5 % (0.0-1.0); %Eosinophils 0.1 % (0.0-10.0); %Lymphocytes 11.3 % (21.0-51.0); %Monocytes 4.5 % (0.0-10.0); %Neutrophils 83.6 % (42.0-75.0); Hemoglobin 14.6 g/dL (14.0-18.0); Mean Corpuscular HGB CONC 32.4 g/dL (32.0-36.0); Mean Corpuscular Hemoglobin 29.6 pg (27.0-31.0); Mean Corpuscular Volume 91.4 fL (78.0-98.0); Mean Platelet Volume 7.9 fL (7.4-10.4); Platelet Count 178 thou/uL (130-400); RBC Distribution Width 13.8 % (11.5-14.5); Red Blood Cell (RBC) Count 4.94 mill/uL (4.70-6.10); White Blood Cell (WBC) Count 6.7 thou/uL (4.8-10.8)
[2020-11-08 14:07] LABS: ALT (SGPT) 12 U/L (8-55); AST (SGOT) 20 U/L (5-34); Albumin 3.6 g/dL (3.5-5.0); Alkaline Phosphatase 126 U/L (40-110); Anion Gap 18 mmol/L (10-20); BUN (Urea Nitrogen) 21 mg/dL (8.9-20.6); Bilirubin, Total 0.3 mg/dL (0.2-1.2); Calc. Creatinine Clearance 0 mL/min (70-130); Calcium 9.7 mg/dL (7.8-10.44); Carbon Dioxide 21 mmol/L (22-29); Chloride 97 mmol/L (98-107); Globulin 5.5 g/dL (2.4-3.5); Glucose 94 mg/dL (70-105); Potassium 4.6 mmol/L (3.5-5.1); Protein, Total 9.1 g/dL (6.0-8.3); Sodium 131 mmol/L (136-145)
[2020-11-08 14:25] LABS: CKMB 2.1 ng/mL (0-6.6)
[2020-11-08] MEDS ORDERED: Metoclopramide HCl 10 MG/2 ML VIAL ONE (14:42)
[2020-11-08] MEDS ORDERED: Lorazepam 0.5 MG TAB ONE ×2 (16:05→16:06)
[2020-11-08] MEDS ORDERED: Aspirin Chewable 81 MG TAB ONE (18:19)
[2020-11-08 20:22] LABS: Troponin I 2.219 ng/mL (< 0.028)
[2020-11-08] MEDS ORDERED: Enoxaparin Sodium 40 MG/0.4 ML SYRINGE ONE (21:01)
[2020-11-08 21:13] LABS: SARS-CoV-2 NAA Rapid Test DETECTED (NotDetected)
== END 2020-11-08 21:42 | disposition home or self-care (01) ==
LOC: BURERS 13:04
DX: U07.1 COVID-19 (principal); J12.82 Pneumonia due to coronavirus disease 2019; J90 Pleural effusion, not elsewhere classified; I10 Essential (primary) hypertension; Z79.899 Other long term (current) drug therapy
CPT/HCPCS: 36415; 71045; 80053; 82553; 83605; 83880; 84484; 85025; 87040; 93005; 96365; 96372; 96375; J1650; J1956; J2765; U0002

== ENCOUNTER 2021-10-16 17:54 | Emergency (ER) | payer MEDICARE, OTHER ==
[2021-10-16 19:14] LABS: #Eosinphils 0.2 thou/uL (0.0-0.7); #Lymphocytes 1.3 thou/uL (1.20-3.40); #Monocytes 0.9 thou/uL (0.11-0.59); #Neutrophils 7.1 thou/uL (1.40-6.50); %Basophils 0.4 % (0.0-1.0); %Eosinophils 2.5 % (0.0-10.0); %Lymphocytes 13.7 % (21.0-51.0); %Monocytes 9.3 % (0.0-10.0); %Neutrophils 74.1 % (42.0-75.0); Hemoglobin 14.4 g/dL (14.0-18.0); Mean Corpuscular HGB CONC 32.9 g/dL (32.0-36.0); Mean Corpuscular Volume 91.2 fL (78.0-98.0); Mean Platelet Volume 6.5 fL (7.4-10.4); Platelet Count 250 thou/uL (130-400); Red Blood Cell (RBC) Count 4.79 mill/uL (4.70-6.10); White Blood Cell (WBC) Count 9.6 thou/uL (4.8-10.8)
[2021-10-16 19:36] LABS: ALT (SGPT) 21 U/L (8-55); AST (SGOT) 21 U/L (5-34); Albumin 3.6 g/dL (3.5-5.0); Alkaline Phosphatase 180 U/L (40-110); Anion Gap 13 mmol/L (10-20); BUN (Urea Nitrogen) 23 mg/dL (8.9-20.6); Bilirubin, Total 0.4 mg/dL (0.2-1.2); Calc. Creatinine Clearance 0 mL/min (70-130); Calcium 9.8 mg/dL (7.8-10.44); Carbon Dioxide 24 mmol/L (22-29); Chloride 108 mmol/L (98-107); Estimated GFR 113; Globulin 4.7 g/dL (2.4-3.5); Glucose 79 mg/dL (70-105); Potassium 4.2 mmol/L (3.5-5.1); Protein, Total 8.3 g/dL (6.0-8.3); Sodium 141 mmol/L (136-145)
[2021-10-16] MEDS ORDERED: cefTRIAXone\\ROCEPHIN 1 GM VIAL ONE (19:52)
[2021-10-16] MEDS ORDERED: Sodium Chloride 0.9% 100 ML ONE (19:52)
[2021-10-16] MEDS ORDERED: diphenhydrAMINE 50 MG/ML VIAL ONE (21:15)
== END 2021-10-16 22:13 | disposition short-term general hospital (02) ==
LOC: BURERS 17:54
DX: L89.159 Pressure ulcer of sacral region, unspecified stage (principal); Z79.891 Long term (current) use of opiate analgesic; Z79.899 Other long term (current) drug therapy
CPT/HCPCS: 72220; 80053; 83605; 85025; 86140; 96365; 96367; 96375; J0696; J1200; J3370; J3490